=== PATIENT | male | born 1960 | race Caucasian/White ===

== ENCOUNTER 2018-11-28 01:06 | Emergency (ER) | payer MEDICARE, SELFPAY ==
[2018-11-28 01:07] VITALS: BP 162/89; PULSE 88; RESP 20; TEMP 36.3; O2SAT 97; BMI 30.7
[2018-11-28 01:11] VITALS: BP 162/89; PULSE 88; RESP 20; TEMP 36.3; O2SAT 97
--- NOTE | 2018-11-28 01:20 | ED.DCSUM_ITS ---
- ER Visit Summary Date of Service: 11/28/18 Chief Complaint: Wound check History of Present Illness: The patient is a 58 M who presents for wound check. He complains of a wound with some burning discomfort on his upper back. This is been present for 1 year. No change in symptoms, he just thought he would come in and have it checked. He otherwise has no complaints. No fevers chest pain shortness of breath vomiting. Physical Examination: Afebrile vitals unremarkable He does have a superficial wound over the upper thoracic region there is an area that is about 2 x 1 cm and a second area below this that is about 1 cm in diameter this is superficial and almost just appears consistent with an area that is been scratched there is no surrounding cellulitic changes no fluctuance mass abscess Test Results: Not indicated Emergency Department Course and Treatment: Patient presents with a superficial chronic wound that does not appear infected and is been present for 1 year. No further emergent diagnostic work-up or intervention is necessary. He was advised to follow-up with a manufacturing engineering professor and was discharged. Treatment Plan: [] Disposition: Discharge Impression: Wound check This note was generated with Sai [employer] dictation software. It may contain incorrect words, spelling, and punctuation that were not noted in review of the chart prior to signing ED Disposition - Plan for ED Patient: Referrals: Armen Carranza MD [Primary Care Provider] -
--- NOTE | 2018-11-28 01:20 | ED.DEP ---
ED Disposition - Plan for ED Patient: Referrals: Armen Carranza MD [Primary Care Provider] - Additional Instructions: You were seen today for a wound on your back. I recommend that you follow-up with dermatology.
[2018-11-28 01:32] VITALS: PULSE 72; RESP 20; O2SAT 98
--- NOTE | 2018-11-28 01:34 | ED.RN ---
THIS NURSE REVIEWED D/C INSTRUCTIONS WITH PT. PT VERBALIZED UNDERSTANDING OF INSTRUCTIONS. PT DENIES FURTHER NEEDS OR QUESTIONS AT THIS TIME. PT AMBULATES FROM ROOM ON OWN WITHOUT ASSISTANCE FROMS [facility]
== END 2018-11-28 01:34 | disposition home or self-care (01) ==
LOC: ED 01:27
PROVIDERS: Emergency Provider Emergency Medicine; Family Provider Family Medicine; PCP Family Medicine
DX: S20.409A Unspecified superficial injuries of unspecified back wall of thorax, initial encounter (principal); X58.XXXA Exposure to other specified factors, initial encounter; Z72.0 Tobacco use
CPT/HCPCS: 99282

== ENCOUNTER 2019-03-24 19:01 | Emergency (ER) | payer MEDICARE, SELFPAY ==
[2019-03-24 19:02] VITALS: BP 154/93; PULSE 85; RESP 16; TEMP 36.7; O2SAT 97; BMI 29.0
[2019-03-24 19:36] LABS: Absolute Lymphocyte Count 2.75 X10^3/uL (0.83-4.51); Absolute Neutrophil Count 7.4 X10^3/uL (2.0-7.7); Basophil# 0.17 X10^3/uL; Basophil% 1.5 % (0-1); Eosinophil# 0.47 X10^3/uL; Hematocrit 46.6 % (40-54); Hemoglobin 15.3 g/dL (13.0-16.5); Lymphocyte # 2.75 X10^3/ul (4.0); Lymphocyte % 23.5 % (19-41); Mean Corp Hgb Conc 32.8 g/dL (32-36); Mean Corpuscular Hgb 29.9 pg (27.0-32.0); Mean Platelet Vol. 9.2 fl (6.2-12.0); Monocyte% 7.7 % (0-10); NRBC Flagged by Analyzer 0 % (0-5); Neutrophil # 7.36 X10^3/uL (2.7-7.7); Neutrophil % 62.8 % (47-70); Platelet Count 331 K/mm3 (150-450); RBC Distribution Width CV 12.4 % (11.6-14.6); RBC Distribution Width SD 41.2 fl (35.1-43.9); Red Blood Count 5.12 M/mm3 (4.6-6.2); White Blood Count 11.7 K/mm3 (4.4-11.0)
[2019-03-24 19:52] LABS: Anion Gap 4 (5-15); BUN 16 mg/dL (7-18); BUN/Creat Ratio 18.4 RATIO (10-20); Calcium,Total 8.5 mg/dL (8.5-10.1); Chloride 110 mmol/L (98-107); Creatinine, Serum 0.87 mg/dL (0.70-1.30); EST Glomerular Filtration Rate 95 mL/min (>60); Est Glom Filt Rate - Afr Amer 115 mL/min (>60); Estimated Creatinine Clearance 85.47 ml/min; Glucose 116 mg/dL (74-106); Potassium 3.9 mmol/L (3.5-5.1); Sodium Level 142 mmol/L (136-145)
[2019-03-24 19:56] LABS: Alcohol, Blood (Medical)-Serum < 3.0 mg/dL
--- NOTE | 2019-03-24 19:57 | ED.DCSUM_ITS ---
- ER Visit Summary Date of Service: 03/24/19 Chief Complaint: Suicidal ideation History of Present Illness: The patient is a 58 M presenting with suicidal ideation. Patient states that he has had thoughts of suicide recently. He tried to shoot himself with a gun 2 months ago. He states the gun malfuncti oned. He does not currently have access to a gun. He has a history of schizophrenia and is not currently taking medication. He states he has been very paranoid and afraid to sleep in his house. He is sleeping in his car. He has had auditory hallucinations. He used methamphetamine 4 days ago. Physical Examination: Vitals are stable. Patient is afebrile. Alert no acute distress. HEENT exam is unremarkable. Neck is supple. Lungs are clear and equal bilaterally. Heart is regular rate and rhythm. Abdomen is soft nontender nondistended. Extremities are unremarkable. Skin is warm and dry. No focal neurologic deficit. Depressed affect, suicidal ideation Remainder of exam is unremarkable. Emergency Department Course and Treatment: CBC shows white count 11.7. Chemistries unremarkable. Alcohol negative. Tox positive for amphetamine. Discussed with social work for evaluation. Disposition: Transfer Impression: Suicidal ideation, history of schizophrenia This note was generated with Ph.Creative dictation software. It may contain incorrect words, spelling, and punctuation that were not noted in review of the chart prior to signing ED Disposition - Plan for ED Patient: Referrals: Armen Carranza MD [Primary Care Provider] -
[2019-03-24 19:58] VITALS: RESP 19
[2019-03-24 20:00] LABS: Amphetamine Urine VISTA POSITIVE (<1000 ng/mL); Barbiturate Urine VISTA NEGATIVE (< 200 ng/mL); Benzodiazepine Urine VISTA NEGATIVE (< 200 ng/mL); Cocaine Urine VISTA NEGATIVE (< 300 ng/mL); Ecstacy Urine VISTA NEGATIVE (< 500 ng/mL); Methadone Urine VISTA NEGATIVE (< 300 ng/mL); PCP Urine VISTA NEGATIVE (< 25 ng/mL); THC Urine VISTA NEGATIVE (< 50 ng/mL); Vista UDS pH Range 5
[2019-03-24 20:01] VITALS: RESP 16
--- NOTE | 2019-03-24 20:10 | CM.ED ---
Social Work Consult: Suicidal Thoughts Informant: Nursing staff, Dr. Myles. Chief Complaint: Patient stating to be scared that someone is going to kill me. Patient stating to be threatened and to have been sleeping in patient car for the past 3 weeks due to someone sending patient pictures of patient house and they are trying to kill me. Patient stating I am tried of it and don't want to deal with life anymore. Marital/Social History: Single. Patient stating to be unable to read or write. Patient stating to be able to read some but it takes me awhile. Living Situation: Lives alone in a private home. Support/Resources: Patient identifying none. Patient stating a history of treatment by psychiatrist and counseling but nothing currently. Education and Employment History: Disability due to mental health and limited literacy per patient. Employed part-time at [employer]. Mental Health Treatment/History: Patient stating to be diagnosed with Schizophrenia. Patient denies taking any medication for Schizophrenia. Patient stating to have been in an inpatient psychiatric facility 3 weeks ago and to have had one other stay besides that. Abuse Issues: Patient denies. Substance Abuse Hx: Patient stating to use meth occasionally and last use was 3-4 days ago. Patient denies any alcohol abuse but stating to have had a recent DUI. Patient states to smoke 1 1/2 ppd of cigarettes. Patient denies any other substance abuse. Patient stating that cigarettes help patient manage stress. Mental Status Exam: A&Ox3 Appearance/General Behavior: disheveled some flight of idea. Was able to be directed. Mood/Affect: Elevated mood and anxious affect. Some paranoid behavior. Patient stating to feel safe now. Communication Pattern: Responds to questions. Thought Process: Paranoid thoughts, stating to hear some voices. Voices and neutral in nature and are not telling patient to kill self. Risk to self/others: Patient stating to have active suicidal thoughts. Patient stating to have attempted suicide in the past by shooting self. Patient denies currently having a gun and to have given patient gun to friends as patient was thinking about shooting self again. Patient stating that last time patient attempted to complete suicide the gun did not go off. Assessment: This clinical social work therapist met with patient in room. This clinical social work therapist introduced self as well as clinical social work therapist role, patient voicing understanding and agreeable to meet with this clinical social work therapist. Patient stating to not feel safe in community from others and to not feel safe from self. Patient stating to not be sure who patient is currently threatened by. This clinical social work therapist inquired if patient has spoken to the police. Patient stating that the police informed patient that patient would need proof. Patient denies having any phone calls or knowing who is after me. Patient stating I feel threatened and I know they are real. Patient stating to be very paranoid. Collaborating with Dr. Myles. This clinical social work therapist recommending inpatient psychiatric placement for stabilization, Dr. Myles agreeable pending medical clearance. Will continue to follow. PLAN: Discharge to Inpatient psychiatric facility if medically cleared. Tim CHOWDARY, MEHDI
--- NOTE | 2019-03-24 20:39 | CM.ED ---
Social Work Telephone call to [facility], Intake. Referral made. Confirmed to be in-network with patient insurance. Clinical information sent. Pending approval. Tim CHOWDARY, MEHDI
[2019-03-24 21:00] VITALS: RESP 16
--- NOTE | 2019-03-24 21:43 | NURSING ---
CALLED [facility] AND WAS TOLD NO AVAILABILITY TILL MORING CALLED [facility] AND SET UP 7:30A P/U
--- NOTE | 2019-03-24 21:53 | CM.ED ---
Social Work Telephone call from [facility], patient accepted. Accepting Dr. Corrales. Nurse to nurse report: [phone]. Notified patient and medical staff. ED secretary administrative assistant to set up transportation. [facility] faxed. Tim CHOWDARY, MEHDI
[2019-03-24 22:17] VITALS: RESP 16
--- NOTE | 2019-03-24 22:30 | ED.RN ---
PT AWARE TRANSPORTATION IS NOT AVAILABLE TO [facility] UNTIL 729 TOMORROW. PT VERBALIZES AN UNDERSTANDING.
[2019-03-24] MEDS: cycloBENZAPRine HCl 10 MG Tablet PO (22:35)
[2019-03-24] MEDS: Ibuprofen 200 MG Tablet 800 MG PO (22:36)
[2019-03-24 23:00] VITALS: BP 148/96; PULSE 73; RESP 16; O2SAT 96
[2019-03-25] VITALS (8 sets, daily range): BP systolic 152; BP diastolic 108; PULSE 61; RESP 15–18; TEMP 36.4; O2SAT 99
[2019-03-25] MEDS: Lisinopril 20 MG Tablet PO (07:22)
== END 2019-03-25 08:16 ==
LOC: ED 20:15
PROVIDERS: Emergency Provider Emergency Medicine; Family Provider Family Medicine; PCP Family Medicine
DX: R45.851 Suicidal ideations (principal); F20.9 Schizophrenia, unspecified; I10 Essential (primary) hypertension
CPT/HCPCS: 36415; 80048; 80307; 80320; 85025; 99284; J7030; G0480

== ENCOUNTER 2019-05-17 22:31 | Emergency (ER) | payer MEDICARE, SELFPAY ==
[2019-05-17 22:31] VITALS: BP 138/93; PULSE 81; RESP 16; TEMP 36.6; O2SAT 97; BMI 28.6
--- NOTE | 2019-05-17 22:46 | ED.VIS.GEN ---
History of Present Illness Chief Complaint: Suicidal Detail of Chief Complaint: Suicidal ideation Informant: Patient Onset: Days - For a few days Context: Gradual Onset Narrative: Patient presents with suicidal ideation is been ongoing for the past several days. He states he has been going through some things but does not want to elaborate. He does not have a specific plan on how he would want to hurt himself. He did attempt to shoot himself a couple years ago in a suicide attempt. Patient was seen here in early March and transferred to [facility]. He states he did feel improved while he was there. He was started on risperidone. Patient states that he has not been sleeping well. He has been eating and drinking. He is been taking his medications as prescribed. Past Medical History - Allergies and Home Meds Allergies/Adverse Reactions: Allergies No Known Allergies Allergy (Verified 05/17/19 22:35) Primary Care Physician: Armen Carranza MD [Primary Care Provider] - Prior records reviewed: Yes Past Medical History: - - Reviewed Lives: Alone Smoking Status: Current every day smoker Alcohol: None Drugs: - - Reports occasional drug use, last used a couple weeks ago. Review of Systems General: Denies: Chills, Fever Eyes: Denies: Visual changes - bilaterally ENT: Denies: Bilateral ear pain Cardiovascular: Denies: Chest pain Respiratory: Denies: Dyspnea, Cough Gastrointestinal: Denies: Abdominal pain, Nausea, Vomiting, Diarrhea Genitourinary: Denies: Dysuria Musculoskeletal: Denies: Neck pain, Back pain Skin: Denies: Rash Neurological: Denies: Headache Psych: Reports: Depression, Suicidal thoughts Hematologic: Denies: Easy bruising Allergy: Denies: Uticaria Physical Exam Vital Signs/Narrative: Vital Signs Temp Pulse Resp BP Pulse Ox 05/17/19 22:31 97.9 F 81 16 138/93 H 97 Inital Vital Signs reviewed: Yes General: Well nourished, Well developed Head: Normocephalic ENT: Moist mucous membranes Cardiovascular: Regular rate, Regular rhythm Respiratory: No distress, CTA bilaterally Abdomen: Soft, Nontender, Normal bowel sounds Extremities: Nontender Skin: Normal color, No rash Neurological: Alert, Oriented x3 Psychological: - - Flat affect. Admits to suicidal ideation but no specific plan. Diagnostic/Tx/Re-eval Laboratory Results 05/17/19 05/17/19 05/17/19 22:55 22:55 22:55 WBC 10.2 RBC 4.84 Hgb 14.2 Hct 44.2 MCV 91.3 MCH 29.3 MCHC 32.1 RDW Std Deviation 43.4 RDW Coeff of Luis Miguel 12.9 Plt Count 315 MPV 9.3 Immature Gran % (Auto) 0.400 Neut % (Auto) 51.8 Lymph % (Auto) 27.3 Kingman % (Auto) 8.8 Eos % (Auto) 9.7 H Baso % (Auto) 2.0 H Absolute Neuts (auto) 5.3 Absolute Lymphs (auto) 2.78 Nucleated RBC % 0 Sodium 142 Potassium 3.9 Chloride 110 H Carbon Dioxide 27.0 Anion Gap 5 BUN 14 Creatinine 0.90 Estim Creat Clear Calc 79.75 Est GFR (MDRD) Af Amer 111 Est GFR (MDRD) Non-Af 92 BUN/Creatinine Ratio 15.6 Glucose 93 Calcium 8.6 Urine Opiates Screen Urine Methadone Screen Ur Barbiturates Screen Ur Phencyclidine Scrn Ur Amphetamines Screen U Methamphetamin-MDMA U Benzodiazepines Scrn Urine Cocaine Screen U Cannabinoids Screen Ur Drug Screen Comment Ethyl Alcohol < 3.0 05/17/19 23:30 WBC RBC Hgb Hct MCV MCH MCHC RDW Std Deviation RDW Coeff of Luis Miguel Plt Count MPV Immature Gran % (Auto) Neut % (Auto) Lymph % (Auto) Kingman % (Auto) Eos % (Auto) Baso % (Auto) Absolute Neuts (auto) Absolute Lymphs (auto) Nucleated RBC % Sodium Potassium Chloride Carbon Dioxide Anion Gap BUN Creatinine Estim Creat Clear Calc Est GFR (MDRD) Af Amer Est GFR (MDRD) Non-Af BUN/Creatinine Ratio Glucose Calcium Urine Opiates Screen NEGATIVE Urine Methadone Screen NEGATIVE Ur Barbiturates Screen NEGATIVE Ur Phencyclidine Scrn NEGATIVE Ur Amphetamines Screen POSITIVE H U Methamphetamin-MDMA NEGATIVE U Benzodiazepines Scrn NEGATIVE Urine Cocaine Screen NEGATIVE U Cannabinoids Screen NEGATIVE Ur Drug Screen Comment Ethyl Alcohol - Medical Decision Making Patient was seen by Angelica from the counseling center. Patient did admit to her that he has been having paranoid thoughts again about someone breaking into his house. He reported has been sleeping in his car for the past 5 nights. He told her that he does not have a specific plan to hurt himself, but states it would probably be pills. Patient's information has been faxed and he has been accepted at [facility] in [place]. Ambulance transport will be available in the morning. ED Disposition - Plan for ED Patient: Disposition: Psychiatric Hospital or Unit Diagnosis: Suicidal ideation, Paranoia Referrals: Armen Carranza MD [Primary Care Provider] -
[2019-05-17 23:00] LABS: Absolute Lymphocyte Count 2.78 X10^3/uL (0.83-4.51); Absolute Neutrophil Count 5.3 X10^3/uL (2.0-7.7); Eosinophil# 0.99 X10^3/uL; Eosinophils% 9.7 % (0-5); Hematocrit 44.2 % (40-54); Hemoglobin 14.2 g/dL (13.0-16.5); Lymphocyte # 2.78 X10^3/ul (4.0); Lymphocyte % 27.3 % (19-41); Mean Corp Hgb Conc 32.1 g/dL (32-36); Mean Corpuscular Hgb 29.3 pg (27.0-32.0); Mean Corpuscular Volume 91.3 fL (80-94); Mean Platelet Vol. 9.3 fl (6.2-12.0); Monocyte% 8.8 % (0-10); NRBC Flagged by Analyzer 0 % (0-5); Neutrophil # 5.26 X10^3/uL (2.7-7.7); Neutrophil % 51.8 % (47-70); Platelet Count 315 K/mm3 (150-450); RBC Distribution Width CV 12.9 % (11.6-14.6); RBC Distribution Width SD 43.4 fl (35.1-43.9); Red Blood Count 4.84 M/mm3 (4.6-6.2); White Blood Count 10.2 K/mm3 (4.4-11.0)
[2019-05-17 23:13] LABS: Anion Gap 5 (5-15); BUN 14 mg/dL (7-18); BUN/Creat Ratio 15.6 RATIO (10-20); Calcium,Total 8.6 mg/dL (8.5-10.1); Chloride 110 mmol/L (98-107); EST Glomerular Filtration Rate 92 mL/min (>60); Est Glom Filt Rate - Afr Amer 111 mL/min (>60); Estimated Creatinine Clearance 79.75 ml/min; Glucose 93 mg/dL (74-106); Potassium 3.9 mmol/L (3.5-5.1); Sodium Level 142 mmol/L (136-145)
[2019-05-17 23:24] LABS: Alcohol, Blood (Medical)-Serum < 3.0 mg/dL
[2019-05-17 23:56] LABS: Amphetamine Urine VISTA POSITIVE (<1000 ng/mL); Barbiturate Urine VISTA NEGATIVE (< 200 ng/mL); Benzodiazepine Urine VISTA NEGATIVE (< 200 ng/mL); Cocaine Urine VISTA NEGATIVE (< 300 ng/mL); Ecstacy Urine VISTA NEGATIVE (< 500 ng/mL); Methadone Urine VISTA NEGATIVE (< 300 ng/mL); PCP Urine VISTA NEGATIVE (< 25 ng/mL); THC Urine VISTA NEGATIVE (< 50 ng/mL); Vista UDS pH Range 6
[2019-05-18] VITALS (7 sets, daily range): BP systolic 125; BP diastolic 84; PULSE 65; RESP 15–17; TEMP 36.4; O2SAT 95–98
== END 2019-05-18 07:47 ==
PROVIDERS: Emergency Provider Emergency Medicine; Family Provider Family Medicine; PCP Family Medicine
DX: R45.851 Suicidal ideations (principal); F22 Delusional disorders; F17.200 Nicotine dependence, unspecified, uncomplicated; Z91.5 Personal history of self-harm
CPT/HCPCS: 36415; 80048; 80307; 80320; 85025; 99284; G0480

== ENCOUNTER 2019-07-17 18:30 | Emergency (ER) | payer MEDICARE, SELFPAY ==
[2019-07-17 18:30] VITALS: BP 160/99; PULSE 98; RESP 16; TEMP 36.3; O2SAT 97; BMI 28.2
[2019-07-17 19:03] VITALS: RESP 14
--- NOTE | 2019-07-17 19:22 | ED.VISSUMM ---
- ER Visit Summary Date of Service: 07/17/19 Chief Complaint: Suicidal ideation History of Present Illness: The patient is a 58 M with a history of schizophrenia and recent admission to [facility]. He was released from the hospital earlier this week. He is not doing well. He is having suicidal thoughts. No plan or attempt. He is worried that someone will attempt to kill him if he goes to sleep. Physical Examination: Afebrile and vital signs unremarkable. Alert and oriented. Depressed mood and flat affect. Heart regular. Lungs clear. Abdomen soft. Skin normal. Test Results: CBC, CMP, tox screen, alcohol pending. Emergency Department Course and Treatment: Patient has a history of schizophrenia with paranoia and suicidal ideation. No plan or attempt. He had suicide precautions. Medical clearance will be performed. Patient will be evaluated by health care social worker and crisis counselor for placement. Amphetamines positive. Otherwise work-up is unremarkable. Patient is medically cleared for psychiatric transfer and admission Treatment Plan: As above Disposition: Pending evaluation Impression: 1. Suicidal ideation This note was generated with [employer] dictation software. It may contain incorrect words, spelling, and punctuation that were not noted in review of the chart prior to signing ED Disposition - Plan for ED Patient: Referrals: Armen Carranza MD [Primary Care Provider] -
[2019-07-17 19:30] LABS: Absolute Lymphocyte Count 2.87 X10^3/uL (0.83-4.51); Absolute Neutrophil Count 6.8 X10^3/uL (2.0-7.7); Basophil# 0.17 X10^3/uL; Basophil% 1.5 % (0-1); Eosinophil# 0.35 X10^3/uL; Eosinophils% 3.1 % (0-5); Hematocrit 45.6 % (40-54); Hemoglobin 15.3 g/dL (13.0-16.5); Lymphocyte # 2.87 X10^3/ul (4.0); Lymphocyte % 25.3 % (19-41); Mean Corp Hgb Conc 33.6 g/dL (32-36); Mean Corpuscular Hgb 29.7 pg (27.0-32.0); Mean Corpuscular Volume 88.4 fL (80-94); Mean Platelet Vol. 9.2 fl (6.2-12.0); Monocyte# 1.11 X10^3/uL; Monocyte% 9.8 % (0-10); NRBC Flagged by Analyzer 0 % (0-5); Neutrophil # 6.81 X10^3/uL (2.7-7.7); Neutrophil % 59.9 % (47-70); Platelet Count 325 K/mm3 (150-450); RBC Distribution Width CV 12.9 % (11.6-14.6); RBC Distribution Width SD 41.9 fl (35.1-43.9); Red Blood Count 5.16 M/mm3 (4.6-6.2); White Blood Count 11.4 K/mm3 (4.4-11.0)
--- NOTE | 2019-07-17 19:55 | CM.ED ---
SOCIAL WORK INFORMANT: DR. LOBATO REASON FOR REFERRAL: SUICIDAL IDEATION/PARANOID CHIEF COMPLIANT: PATIENT REPORTS JUST D/C'ED FROM [facility]. PATIENT REPORTS SUICIDAL THOUGHTS, PARANOID DELUSIONS, AUDITORY AND VISUAL HALLUCINATIONS. PATIENT STATES HAS BEEN SLEEPING IN HIS CAR BECAUSE I THOUGHT PEOPLE WOULD ATTACK ME. MARITAL/SOCIAL HISTORY: SINGLE LIVING SITUATION: PATIENT REPORTS LIVES IN [place], [place] IN AN APARTMENT ALONE. 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 MENTAL HEALTH TREATMENT/HISTORY: PATIENT REPORTS HAS BEEN DIAGNOSED WITH SCHIZOPHRENIA. PATIENT STATES IS NOT CURRENTLY ON MEDICATION. PATIENT STATES HAS BEEN IN/OUT OF PSYCH HOSPITALS. SUBSTANCE ABUSE HISTORY: PATIENT REPORTS PRIOR HISTORY OF METH USE. PATIENT DENIES ANY CURRENT USE, UNLESS SOMEONE PUT IT IN MY DRINK. MENTAL STATUS EXAM ORIENTATION: A&OX3 MEMORY: FAIR APPEARANCE/GENERAL BEHAVIOR: CLEAN/APPROPRIATE, CALM MOOD/AFFECT: ANXIOUS COMMUNICATION PATTERN: RESPONDS TO QUESTIONS, RAPID SPEECH THOUGHT PROCESS: PARANOID, HALLUCINATION A/V, DELUSIONS JUDGEMENT: FAIR RISK TO SELF/OTHERS: SUICIDAL: PATIENT ADMITS TO SUICIDAL THOUGHTS. DENIES PLAN OR INTENT. HOMICIDAL: PATIENT DENIES HOMICIDAL THOUGHTS. IF SOMEONE HURTS ME, THEN I WILL HURT THEM. I DON'T WANT TO HURT ANYBODY. ASSESSMENT: MET WITH PATIENT IN ROOM. INTRODUCED ROLE AND REASON FOR REFERRAL. PATIENT STATES WAS JUST DISCHARGED FROM [facility]. PATIENT STATES THEY DROPPED THE BALL. PATIENT REPORTS DID NOT FEEL READY FOR DISCHARGE AND FACILITY DID NOT SET UP SERVICES FOR PATIENT. PATIENT REPORTS SUICIDAL IDEATION. PATIENT DENIES ANY PLAN OR INTENT. PATIENT STATES MY HEAD JUST ISN'T RIGHT. PATIENT REPORTS WORRIED ABOUT BEING ALONE. PATIENT STATES HAS BEEN SLEEPING IN HIS TRUCK, I THOUGHT PEOPLE WOULD ATTACK ME. PATIENT PRESENTS WITH PARANOID DELUSIONS. PATIENT STATES HAVING AUDITORY AND VISUAL HALLUCINATIONS. PATIENT STATES WANTING HELP AND WAS HOPING TO GET INTO 90 DAY TREATMENT PROGRAM AFTER HOSPITALIZATION. COLLABORATION WITH DR. LOBATO. RECOMMENDING INPATIENT PSYCH HOSPITALIZATION FOR STABILIZATION. PLAN: REFERRAL FOR INPATIENT PSYCH EPI ALBA, CERTIFIED NURSING ATTENDANT.
[2019-07-17 20:01] LABS: ALB/GLOB Ratio 1.1 RATIO (0.9-2.4); AST(SGOT) 16 U/L (15-37); Alanine Aminotransfer ALT/SGPT 22 U/L (16-61); Alkaline Phosphatase 92 U/L (45-117); Anion Gap 8 (5-15); BUN 22 mg/dL (7-18); BUN/Creat Ratio 22.5 RATIO (10-20); Calcium,Total 9.2 mg/dL (8.5-10.1); Chloride 107 mmol/L (98-107); Creatinine, Serum 0.98 mg/dL (0.70-1.30); EST Glomerular Filtration Rate 83 mL/min (>60); Est Glom Filt Rate - Afr Amer 101 mL/min (>60); Estimated Creatinine Clearance 73.24 ml/min; Globulin 3.6 g/dL (2.2-4.2); Glucose 131 mg/dL (74-106); Potassium 3.7 mmol/L (3.5-5.1); Protein, Total 7.6 g/dL (6.4-8.2); Sodium Level 142 mmol/L (136-145)
[2019-07-17 20:02] LABS: Alcohol, Blood (Medical)-Serum < 3.0 mg/dL
--- NOTE | 2019-07-17 20:20 | CM.ED ---
SOCIAL WORK REFERRAL FAXED AND CALLED TO [facility]. WILL FAX TOX SCREEN ONCE OBTAINED. Luann WEIR, SENIOR HR GENERALIST, SUPERVISOR ADVICE.
[2019-07-17 21:08] LABS: Amphetamine Urine VISTA POSITIVE (<1000 ng/mL); Barbiturate Urine VISTA NEGATIVE (< 200 ng/mL); Benzodiazepine Urine VISTA NEGATIVE (< 200 ng/mL); Cocaine Urine VISTA NEGATIVE (< 300 ng/mL); Ecstacy Urine VISTA NEGATIVE (< 500 ng/mL); Methadone Urine VISTA NEGATIVE (< 300 ng/mL); PCP Urine VISTA NEGATIVE (< 25 ng/mL); THC Urine VISTA NEGATIVE (< 50 ng/mL); Vista UDS pH Range 5
--- NOTE | 2019-07-17 21:15 | CM.ED ---
SOCIAL WORK TOX SCREEN FAXED TO [facility]
--- NOTE | 2019-07-17 21:49 | CM.ED ---
SOCIAL WORK RECEIVED CALL FROM INTAKE WITH [facility]. PER WORKER, SPOKE WITH DOCTOR AND THEY FEEL PATIENT REQUIRES MORE INTENSE TREATMENT. PATIENT DENIED. REFERRAL FAXED AND CALLED TO [facility]. INTAKE TO REVIEW REFERRAL. Luann WEIR MSW, OFFICE SERVICES ASSOCIATE.
--- NOTE | 2019-07-17 22:26 | CM.ED ---
SOCIAL WORK PATIENT ACCEPTED AT [facility] BY ORTIZ MCALLISTER TO THE DDX UNIT. NURSE TO CALL REPORT TO [facility]. [facility] FAXED AT THIS TIME. Luann WEIR, VP COMPLIANCE, PLATE HANGER.
[2019-07-17 23:00] VITALS: BP 160/99; PULSE 98; RESP 16; TEMP 36.3; O2SAT 97
[2019-07-17] MEDS: cycloBENZAPRine HCl 10 MG Tablet PO (23:33)
[2019-07-17] MEDS: Ibuprofen 400 MG Tablet 800 MG PO (23:33)
--- NOTE | 2019-07-17 23:36 | ED.RN ---
julius pinedo agrees to transport to [facility]. ETA 1.5-2 hr from this time.
== END 2019-07-18 01:21 ==
LOC: ED 20:00
PROVIDERS: Emergency Provider Emergency Medicine; Family Provider Family Medicine; PCP Family Medicine
DX: R45.851 Suicidal ideations (principal); F20.0 Paranoid schizophrenia; Z72.0 Tobacco use
CPT/HCPCS: 80053; 80307; 80320; 85025; 99284; G0480

== ENCOUNTER 2020-02-02 17:32 | Emergency (ER) | payer MEDICARE, SELFPAY ==
[2020-02-02 17:33] VITALS: BP 197/52; PULSE 101; RESP 24; TEMP 36.7; BMI 30.5
--- NOTE | 2020-02-02 17:54 | ED.VIS.GEN ---
History of Present Illness Chief Complaint: Suicidal Informant: Patient Onset: Days Context: Gradual Onset Narrative: Patient present secondary to suicidal ideation. He states he just been feeling down lately. He has a history of schizophrenia. He was last treated at [facility] in [place] and states they gave him a shot there that really seem to help him. He was hoping to go back to be seen and evaluated by them again. He denies having a specific plan to me. He is no longer following up with the counseling center locally. He is not taking any psychiatric medications at home. - Past Medical History (1) Schizophrenia Status: Chronic (2) Coronary artery disease Status: Chronic (3) Hypertension Status: Chronic (4) High cholesterol Status: Chronic (5) Back pain Status: Chronic Past Medical History - Allergies and Home Meds Allergies/Adverse Reactions: Allergies No Known Allergies Allergy (Verified 02/02/20 19:04) Primary Care Physician: Armen Carranza MD [Primary Care Provider] - Prior records reviewed: Yes Lives: Alone Smoking Status: Current every day smoker Review of Systems General: Denies: Chills, Fever Eyes: Denies: Visual changes - bilaterally ENT: Denies: Bilateral ear pain Cardiovascular: Denies: Chest pain Respiratory: Denies: Dyspnea, Cough Gastrointestinal: Denies: Abdominal pain, Nausea, Vomiting, Diarrhea Genitourinary: Denies: Dysuria Musculoskeletal: Denies: Extremity Pain Neurological: Denies: Headache Psych: Reports: Depression, Suicidal thoughts Hematologic: Denies: Easy bruising, Easy bleeding Allergy: Denies: Uticaria Physical Exam Vital Signs/Narrative: Vital Signs Temp Pulse Resp BP 02/02/20 17:33 98.0 F 101 H 24 H 197/52 H Inital Vital Signs reviewed: Yes General: Well nourished, Well developed Head: Normocephalic ENT: Moist mucous membranes Neck: Supple Cardiovascular: Regular rate, Regular rhythm Respiratory: No distress, CTA bilaterally Abdomen: Soft, Nontender Extremities: Nontender Skin: Normal color Neurological: Alert, Oriented x3 Psychological: Depressed Diagnostic/Tx/Re-eval Laboratory Results 02/02/20 02/02/20 02/02/20 18:30 18:35 18:35 WBC 10.1 RBC 5.04 Hgb 15.4 Hct 45.8 MCV 90.9 MCH 30.6 MCHC 33.6 RDW Std Deviation 41.8 RDW Coeff of Luis Miguel 12.7 Plt Count 334 MPV 9.2 Immature Gran % (Auto) 0.400 Neut % (Auto) 59.4 Lymph % (Auto) 24.6 [place]. [place] % (Auto) 8.8 Eos % (Auto) 4.9 Baso % (Auto) 1.9 H Absolute Neuts (auto) 6.0 Absolute Lymphs (auto) 2.47 Nucleated RBC % 0 Sodium 140 Potassium 3.7 Chloride 105 Carbon Dioxide 28.0 Anion Gap 7 BUN 12 Creatinine 0.86 Estim Creat Clear Calc 85.40 Est GFR (MDRD) Af Amer 116 Est GFR (MDRD) Non-Af 96 BUN/Creatinine Ratio 13.9 Glucose 107 H Calcium 8.4 L Urine Opiates Screen NEGATIVE Urine Methadone Screen NEGATIVE Ur Barbiturates Screen NEGATIVE Ur Phencyclidine Scrn NEGATIVE Ur Amphetamines Screen NEGATIVE U Methamphetamin-MDMA NEGATIVE U Benzodiazepines Scrn NEGATIVE Urine Cocaine Screen NEGATIVE U Cannabinoids Screen NEGATIVE Ur Drug Screen Comment Ethyl Alcohol 02/02/20 18:35 WBC RBC Hgb Hct MCV MCH MCHC RDW Std Deviation RDW Coeff of Luis Miguel Plt Count MPV Immature Gran % (Auto) Neut % (Auto) Lymph % (Auto) [place]. [place] % (Auto) Eos % (Auto) Baso % (Auto) Absolute Neuts (auto) Absolute Lymphs (auto) Nucleated RBC % Sodium Potassium Chloride Carbon Dioxide Anion Gap BUN Creatinine Estim Creat Clear Calc Est GFR (MDRD) Af Amer Est GFR (MDRD) Non-Af BUN/Creatinine Ratio Glucose Calcium Urine Opiates Screen Urine Methadone Screen Ur Barbiturates Screen Ur Phencyclidine Scrn Ur Amphetamines Screen U Methamphetamin-MDMA U Benzodiazepines Scrn Urine Cocaine Screen U Cannabinoids Screen Ur Drug Screen Comment Ethyl Alcohol < 3.0 - Medical Decision Making Patient was seen by Chelsie from social work. Patient is voluntarily going to [facility] in [place]. We will arrange transport for him. ED Disposition - Plan for ED Patient: Disposition: Psychiatric Hospital or Unit Diagnosis: Suicidal ideation Referrals: Armen Carranza MD [Primary Care Provider] -
--- NOTE | 2020-02-02 18:24 | CM.ED ---
SOCIAL WORK Informant: Dr. Toth Reason for Consult: Suicidal Ideation Chief Compliant: Patient presents to ER with suicidal ideation, patient denies specific plan. Patient admits to depression, hallucinations- auditory and visual, and paranoia. Patient reports history of schizophrenia. Marital/Social History: Single Living Situation: Patient reports lives in an apartment in [place]. 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 Mental Health Treatment/History: Patient reports history of schizophrenia, depression. Patient states I was on a shot and it worked really well. Patient denies any current treatment. Patient states uses NyQuil to help with sleep. Triggers/Stressors: Every thing in my life. Coping Skills: Patient states I try to work a lot, or use my NyQuil. Abuse Issues: Patient denies any emotional, physical or sexual abuse. Substance Abuse History: Patient admits to history of meth use to stay awake. Patient states last used meth 3 weeks ago. Patient stating, I was afraid to go to sleep. Risk to Self/Others: Suicidal: Patient admits to suicidal thoughts. Patient denies any specific plans. Patient states, Wish I would just lay down and not wake up. I've had thoughts of shooting myself in the past. Patient counseled on lethal means. Homicidal: Patient denies any homicidal ideation. Mental Status Exam: Orientation: A&Ox3 Memory: Fair Appearance/General Behavior: Clean/appropriate Mood/Affect: Depressed, anxious Communication Pattern: Responds to questions Thought Process: Hallucinations-auditory and visual, paranoid Judgment: Fair Assessment: Met with patient in room. Patient with sitter protocol in place. Introduced role and reason for referral. Patient admits to suicidal ideation and states has not been doing well. Patient states is currently not taking any medications for mental health. Patient states uses NyQuil to sleep. Patient admits to meth use 3 weeks ago due to being afraid to fall asleep. Patient states has thoughts that people are out to get him. Patient states did well with shot form of medication and hopes to get back on that. Patient admits to suicidal ideation and denies any specific plan. Patient states does not feel safe with going home and wants help. Collaboration with Dr. Toth. Plan for inpatient psych hospitalization. Patient is voluntary. This worker to facilitate placement. Plan: Referral for inpatient psych D. EPI St, STAFF OCCUPATIONAL THERAPIST
[2020-02-02 18:44] VITALS: RESP 18
[2020-02-02 18:52] LABS: Absolute Lymphocyte Count 2.47 X10^3/uL (0.83-4.51); Basophil# 0.19 X10^3/uL; Basophil% 1.9 % (0-1); Eosinophil# 0.49 X10^3/uL; Eosinophils% 4.9 % (0-5); Hematocrit 45.8 % (40-54); Hemoglobin 15.4 g/dL (13.0-16.5); Lymphocyte # 2.47 X10^3/ul (4.0); Lymphocyte % 24.6 % (19-41); Mean Corp Hgb Conc 33.6 g/dL (32-36); Mean Corpuscular Hgb 30.6 pg (27.0-32.0); Mean Corpuscular Volume 90.9 fL (80-94); Mean Platelet Vol. 9.2 fl (6.2-12.0); Monocyte# 0.88 X10^3/uL; Monocyte% 8.8 % (0-10); NRBC Flagged by Analyzer 0 % (0-5); Neutrophil # 5.98 X10^3/uL (2.7-7.7); Neutrophil % 59.4 % (47-70); Platelet Count 334 K/mm3 (150-450); RBC Distribution Width CV 12.7 % (11.6-14.6); RBC Distribution Width SD 41.8 fl (35.1-43.9); Red Blood Count 5.04 M/mm3 (4.6-6.2); White Blood Count 10.1 K/mm3 (4.4-11.0)
[2020-02-02 19:05] LABS: Amphetamine Urine VISTA NEGATIVE (<1000 ng/mL); Barbiturate Urine VISTA NEGATIVE (< 200 ng/mL); Benzodiazepine Urine VISTA NEGATIVE (< 200 ng/mL); Cocaine Urine VISTA NEGATIVE (< 300 ng/mL); Ecstacy Urine VISTA NEGATIVE (< 500 ng/mL); Methadone Urine VISTA NEGATIVE (< 300 ng/mL); PCP Urine VISTA NEGATIVE (< 25 ng/mL); THC Urine VISTA NEGATIVE (< 50 ng/mL); Vista UDS pH Range 6
[2020-02-02 19:10] LABS: Alcohol, Blood (Medical)-Serum < 3.0 mg/dL
[2020-02-02 19:26] LABS: Anion Gap 7 (5-15); BUN 12 mg/dL (7-18); BUN/Creat Ratio 13.9 RATIO (10-20); Calcium,Total 8.4 mg/dL (8.5-10.1); Chloride 105 mmol/L (98-107); Creatinine, Serum 0.86 mg/dL (0.70-1.30); EST Glomerular Filtration Rate 96 mL/min (>60); Est Glom Filt Rate - Afr Amer 116 mL/min (>60); Glucose 107 mg/dL (74-106); Potassium 3.7 mmol/L (3.5-5.1); Sodium Level 140 mmol/L (136-145)
--- NOTE | 2020-02-02 19:26 | CM.ED ---
SOCIAL WORK Referral faxed and called to [facility]. Awaiting bed confirmation at this time. Luann St, TAXATION INSPECTOR, DRAMATIC DIRECTOR
--- NOTE | 2020-02-02 19:43 | CM.ED ---
SOCIAL WORK Received call from Brittany with [facility]. Per Brittany, patient has been accepted. Brittany reports patient will need to sign consents for voluntary placement. Brittany to fax consents to this worker. Once completed and faxed back to [facility], Brittany will call with accepting information. Staff updated. Luann St, ELECTRICIAN HELPER, FIELD IRRIGATION WORKER
--- NOTE | 2020-02-02 20:22 | CM.ED ---
SOCIAL WORK Consents for Voluntary placement to [facility] received and completed by patient. Consents faxed to [facility] at this time. Awaiting call back with accepting information.
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
[2020-02-02 20:45] VITALS: BP 165/99; PULSE 87; RESP 18; TEMP 36.9; O2SAT 97
[2020-02-02 20:50] VITALS: BP 165/99; PULSE 87; RESP 18; TEMP 36.9; O2SAT 97
== END 2020-02-02 23:27 ==
PROVIDERS: Emergency Provider Emergency Medicine; PCP Family Medicine
DX: R45.851 Suicidal ideations (principal); I25.10 Atherosclerotic heart disease of native coronary artery without angina pectoris; I10 Essential (primary) hypertension; E78.00 Pure hypercholesterolemia, unspecified; F20.9 Schizophrenia, unspecified; F17.200 Nicotine dependence, unspecified, uncomplicated
CPT/HCPCS: 80048; 80307; 80320; 85025; 99284; G0480

== ENCOUNTER 2020-05-09 19:40 | Emergency (ER) | payer MEDICARE, SELFPAY ==
[2020-05-09 19:40] VITALS: BP 147/78; PULSE 94; RESP 17; TEMP 36.3; O2SAT 97; BMI 30.4
--- NOTE | 2020-05-09 20:19 | EKG12_ITS ---
Test Reason : [facility] Blood Pressure : / mmHG Vent. Rate : 087 BPM Atrial Rate : 087 BPM P-R Int : 162 ms QRS Dur : 100 ms QT Int : 356 ms P-R-T Axes : 068 -83 076 degrees QTc Int : 428 ms Normal sinus rhythm Left axis deviation Abnormal ECG Confirmed by JOHNNY RUST, TOSHIA ([id number]), communications editor MICAH HUFFMAN ([id number]) on 05/15/2020 11:53:21 AM Referred By: Confirmed By:TOSHIA TURNER MD
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
[2020-05-09 20:44] LABS: Absolute Lymphocyte Count 2.92 X10^3/uL (0.83-4.51); Absolute Neutrophil Count 7.2 X10^3/uL (2.0-7.7); Basophil# 0.19 X10^3/uL; Basophil% 1.6 % (0-1); Eosinophil# 0.58 X10^3/uL; Eosinophils% 4.8 % (0-5); Hematocrit 48.1 % (40-54); Hemoglobin 16.1 g/dL (13.0-16.5); Lymphocyte # 2.92 X10^3/ul (4.0); Mean Corp Hgb Conc 33.5 g/dL (32-36); Mean Corpuscular Hgb 30.1 pg (27.0-32.0); Mean Corpuscular Volume 90.1 fL (80-94); Mean Platelet Vol. 9.5 fl (6.2-12.0); Monocyte# 1.18 X10^3/uL; Monocyte% 9.7 % (0-10); NRBC Flagged by Analyzer 0 % (0-5); Neutrophil # 7.24 X10^3/uL (2.7-7.7); Neutrophil % 59.6 % (47-70); Platelet Count 345 K/mm3 (150-450); RBC Distribution Width CV 12.5 % (11.6-14.6); RBC Distribution Width SD 41.1 fl (35.1-43.9); Red Blood Count 5.34 M/mm3 (4.6-6.2); White Blood Count 12.2 K/mm3 (4.4-11.0)
[2020-05-09 21:02] LABS: ALB/GLOB Ratio 0.9 RATIO (0.9-2.4); AST(SGOT) 13 U/L (15-37); Alanine Aminotransfer ALT/SGPT 26 U/L (16-61); Albumin, Serum 3.7 g/dL (3.2-5.0); Alkaline Phosphatase 108 U/L (45-117); Anion Gap 7 (5-15); BUN 14 mg/dL (7-18); BUN/Creat Ratio 14.5 RATIO (10-20); Calcium,Total 8.5 mg/dL (8.5-10.1); Chloride 105 mmol/L (98-107); Creatinine, Serum 0.97 mg/dL (0.70-1.30); EST Glomerular Filtration Rate 84 mL/min (>60); Est Glom Filt Rate - Afr Amer 102 mL/min (>60); Estimated Creatinine Clearance 73.08 ml/min; Globulin 3.9 g/dL (2.2-4.2); Glucose 99 mg/dL (74-106); Potassium 3.6 mmol/L (3.5-5.1); Protein, Total 7.6 g/dL (6.4-8.2); Sodium Level 140 mmol/L (136-145)
[2020-05-09 21:24] VITALS: RESP 16
[2020-05-09 22:06] VITALS: RESP 16
--- NOTE | 2020-05-09 22:06 | ED.RN ---
PT REPORTS HE WANTS TO LEAVE, PT INFORMED THAT HE IS PINK SLIPPED BY THE PHYSICIAN, AND IS UNABLE TO LEAVE AT THIS TIME. PT INFORMED THAT THE COUNSELOR CANNOT BE CONTACTED UNTIL HE IS ABLE TO GIVE A URINE SPECIMAN. PT REPORTS, I AM TIRED OF BEING HERE AND I WANTT TO GET AWAY FROM ALL OFF THESE PEOPLE. PT REFUSING ANY ANXIETY MEDICATION AT THIS TIME. SITTER REMIANS AT BEDSIDE. WILL CONTINUE TO MONITOR.
[2020-05-09 22:53] LABS: Amphetamine Urine VISTA POSITIVE (<1000 ng/mL); Barbiturate Urine VISTA NEGATIVE (< 200 ng/mL); Benzodiazepine Urine VISTA NEGATIVE (< 200 ng/mL); Cocaine Urine VISTA NEGATIVE (< 300 ng/mL); Ecstacy Urine VISTA POSITIVE (< 500 ng/mL); Methadone Urine VISTA NEGATIVE (< 300 ng/mL); PCP Urine VISTA NEGATIVE (< 25 ng/mL); THC Urine VISTA NEGATIVE (< 50 ng/mL); Vista UDS pH Range 5
[2020-05-09 23:16] VITALS: RESP 15
[2020-05-10 00:09] VITALS: BP 143/93; PULSE 78; RESP 15; O2SAT 96
--- NOTE | 2020-05-10 00:10 | ED.RN ---
pt with 68 dollars freeman in wallet. pt refuses to lock money up in safe and insists on leaving it in his belongings bag. belongings placed in appropriate mental health bin and labeled with pt identifiers.
[2020-05-10 01:35] VITALS: RESP 18
--- NOTE | 2020-05-10 01:39 | ED.RN ---
crisis called to speak with patient at this time
[2020-05-10 02:12] VITALS: RESP 17
[2020-05-10 04:00] VITALS: BP 142/94; PULSE 75; RESP 20; O2SAT 94
--- NOTE | 2020-05-10 04:54 | ED.RN ---
Attempted to call report to [facility]. No extension was given, unable to utilize automatic extension system to reach the adult behavioral unit. Supervisor Communications And Signals states she did not get an extension.
--- NOTE | 2020-05-10 06:26 | ED.RN ---
REPORT CALLED TO MIKHAIL AT [facility].
== END 2020-05-10 04:30 ==
LOC: ED 20:27
PROVIDERS: Emergency Provider Emergency Medicine; PCP Family Medicine
DX: F20.9 Schizophrenia, unspecified (principal); R45.851 Suicidal ideations; F17.200 Nicotine dependence, unspecified, uncomplicated
CPT/HCPCS: 36415; 80053; 80307; 80320; 85025; 87635; 93005; 99284; G0480; U0003

== ENCOUNTER 2020-07-11 20:02 | Emergency (ER) | payer MEDICARE, SELFPAY ==
[2020-07-11 20:03] VITALS: BP 160/108; PULSE 96; RESP 16; TEMP 36.4; O2SAT 99; BMI 30.8
--- NOTE | 2020-07-11 20:33 | ED.DCSUM_ITS ---
History of Present Illness Chief Complaint: Suicidal Narrative: This patient is a 59-year-old male who presents with suicidal ideations. He states that over the last couple of days he has had increased bad thoughts. He has thoughts of harming himself. He wanted to shoot himself. He does not currently have access to a gun. No thoughts of harming anyone else. He is a schizophrenic. He denies any recent medical illness such as fevers vomiting cough. Past Medical History - Allergies and Home Meds Allergies/Adverse Reactions: Allergies No Known Allergies Allergy (Verified 07/11/20 20:05) Primary Care Physician: Armen Carranza MD [Primary Care Provider] - Past Medical History: - - Schizophrenia, hyperlipidemia Surgical History: noncontributory Smoking Status: Current every day smoker Review of Systems All systems negative except as indicated General: Denies: Fever Eyes: Denies: Visual changes - bilaterally ENT: Denies: Bilateral ear pain Cardiovascular: Denies: Chest pain Respiratory: Denies: Dyspnea Gastrointestinal: Denies: Nausea, Vomiting Musculoskeletal: Denies: Myalgias, Arthralgias Skin: Denies: Rash Psych: Reports: Suicidal thoughts, Suicidal ideations Hematologic: Denies: Easy bruising Allergy: Denies: Uticaria Physical Exam Vital Signs/Narrative: Vital Signs Temp Pulse Resp BP Pulse Ox 07/11/20 20:03 97.5 F L 96 16 160/108 H 99 General: Well nourished Head: Normocephalic Eyes: EOMI ENT: Moist mucous membranes Neck: Supple Cardiovascular: Regular rate Respiratory: No distress Abdomen: Soft, Nontender Skin: Normal color Neurological: Alert Psychological: - - Patient report suicidal thoughts, calm and cooperative with history and examination Diagnostic/Tx/Re-eval Laboratory Results 07/11/20 07/11/20 07/11/20 21:05 Unknown Unknown WBC 10.4 RBC 5.13 Hgb 15.5 Hct 45.8 MCV 89.3 MCH 30.2 MCHC 33.8 RDW Std Deviation 41.2 RDW Coeff of Luis Miguel 12.5 Plt Count 333 MPV 9.2 Immature Gran % (Auto) 0.400 Neut % (Auto) 59.0 Lymph % (Auto) 24.9 [place] % (Auto) 8.4 Eos % (Auto) 5.5 H Baso % (Auto) 1.8 H Absolute Neuts (auto) 6.1 Absolute Lymphs (auto) 2.58 Nucleated RBC % 0 Sodium 139 Potassium 3.7 Chloride 107 Carbon Dioxide 27.0 Anion Gap 5 BUN 15 Creatinine 0.96 Estim Creat Clear Calc 76.50 Est GFR (MDRD) Af Amer 102 Est GFR (MDRD) Non-Af 85 BUN/Creatinine Ratio 15.6 Glucose 123 H Calcium 8.4 L Urine Opiates Screen NEGATIVE Urine Methadone Screen NEGATIVE Ur Barbiturates Screen NEGATIVE Ur Phencyclidine Scrn NEGATIVE Ur Amphetamines Screen POSITIVE H U Methamphetamin-MDMA POSITIVE H U Benzodiazepines Scrn NEGATIVE Urine Cocaine Screen NEGATIVE U Cannabinoids Screen NEGATIVE Ur Drug Screen Comment Ethyl Alcohol 07/11/20 Unknown WBC RBC Hgb Hct MCV MCH MCHC RDW Std Deviation RDW Coeff of Luis Miguel Plt Count MPV Immature Gran % (Auto) Neut % (Auto) Lymph % (Auto) [place] % (Auto) Eos % (Auto) Baso % (Auto) Absolute Neuts (auto) Absolute Lymphs (auto) Nucleated RBC % Sodium Potassium Chloride Carbon Dioxide Anion Gap BUN Creatinine Estim Creat Clear Calc Est GFR (MDRD) Af Amer Est GFR (MDRD) Non-Af BUN/Creatinine Ratio Glucose Calcium Urine Opiates Screen Urine Methadone Screen Ur Barbiturates Screen Ur Phencyclidine Scrn Ur Amphetamines Screen U Methamphetamin-MDMA U Benzodiazepines Scrn Urine Cocaine Screen U Cannabinoids Screen Ur Drug Screen Comment Ethyl Alcohol < 3.0 - Medical Decision Making Medical clearance includes EKG. EKG shows normal sinus rhythm at a rate of 79 with no acute ischemic changes. Labs are notable for amphetamines and methamphetamines on urine drug screen. Patient has no Covid symptoms but a Covid test was requested by mental health facility. At this point patient is medically cleared. I do feel he meets criteria for long-term psychiatric hospitalization. Social work is seeing the patient to assist with arranging for an accepting facility. ED Disposition - Plan for ED Patient: Disposition: Psychiatric Hospital or Unit Diagnosis: Suicidal ideation Referrals: Armen Carranza MD [Primary Care Provider] -
--- NOTE | 2020-07-11 20:38 | CM.ED ---
SOCIAL WORK ASSESSMENT Informant: Dr. Serrano Reason for Consult: Suicidal Ideation Chief Compliant: Patient presents to [facility] ER with suicidal ideation with plan to shoot myself. Patient reports his brother has a gun. Patient admits to depression, visual and auditory hallucinations. Patient with history of schizophrenia. Marital/Social History: Single Living Situation: Patient reports lives in an apartment in [place], [place]. 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 Patient denies any current medication. Abuse Issues: Patient denies any history of emotional, physical or sexual abuse. Substance Abuse History: Patient admits to meth use to stay awake. Patient reports last use of meth was yesterday. Risk to Self/Others: Suicidal- Patient admits to suicidal ideation over the last 2 days. It's really bad this time. Patient reports plan to shoot myself. Patient states does have access to a gun. Homicidal- Patient denies any homicidal ideation. Mental Status Exam: Orientation- A&Ox3 Memory- Fair Appearance/General Behavior: disheveled, appropriate Mood/Affect: flat, depressed, anxious Communication Pattern: responds to questions Thought Process: hallucinations- auditory and visual Judgment: poor Assessment: Met with patient and Dr. Serrano in room. Introduced role and reason for referral. Sitter protocol in place. Patient reports suicidal ideation over the last few days. Patient reports plan to shoot myself. Patient admits to use of meth use yesterday to stay awake. Patient reports is not currently taking medications. Patient reports auditory and visual hallucinations. Patient believes would benefit from hospitalization. Dr. Serrano in agreement with hospitalization. This worker to facilitate placement. [place] Slip added to chart. Plan: Referral for inpatient psych hospitalization Luann St MSW, TECHNICIAN TEST SYSTEMS
[2020-07-11 20:40] LABS: Absolute Lymphocyte Count 2.58 X10^3/uL (0.83-4.51); Absolute Neutrophil Count 6.1 X10^3/uL (2.0-7.7); Basophil# 0.19 X10^3/uL; Basophil% 1.8 % (0-1); Eosinophil# 0.57 X10^3/uL; Eosinophils% 5.5 % (0-5); Hematocrit 45.8 % (40-54); Hemoglobin 15.5 g/dL (13.0-16.5); Lymphocyte # 2.58 X10^3/ul (4.0); Lymphocyte % 24.9 % (19-41); Mean Corp Hgb Conc 33.8 g/dL (32-36); Mean Corpuscular Hgb 30.2 pg (27.0-32.0); Mean Corpuscular Volume 89.3 fL (80-94); Mean Platelet Vol. 9.2 fl (6.2-12.0); Monocyte# 0.87 X10^3/uL; Monocyte% 8.4 % (0-10); NRBC Flagged by Analyzer 0 % (0-5); Neutrophil # 6.13 X10^3/uL (2.7-7.7); Platelet Count 333 K/mm3 (150-450); RBC Distribution Width CV 12.5 % (11.6-14.6); RBC Distribution Width SD 41.2 fl (35.1-43.9); Red Blood Count 5.13 M/mm3 (4.6-6.2); White Blood Count 10.4 K/mm3 (4.4-11.0)
[2020-07-11 20:53] LABS: Anion Gap 5 (5-15); BUN 15 mg/dL (7-18); BUN/Creat Ratio 15.6 RATIO (10-20); Calcium,Total 8.4 mg/dL (8.5-10.1); Chloride 107 mmol/L (98-107); Creatinine, Serum 0.96 mg/dL (0.70-1.30); EST Glomerular Filtration Rate 85 mL/min (>60); Est Glom Filt Rate - Afr Amer 102 mL/min (>60); Glucose 123 mg/dL (74-106); Potassium 3.7 mmol/L (3.5-5.1); Sodium Level 139 mmol/L (136-145)
[2020-07-11 21:05] LABS: Alcohol, Blood (Medical)-Serum < 3.0 mg/dL
[2020-07-11 21:41] LABS: Amphetamine Urine VISTA POSITIVE (<1000 ng/mL); Barbiturate Urine VISTA NEGATIVE (< 200 ng/mL); Benzodiazepine Urine VISTA NEGATIVE (< 200 ng/mL); Cocaine Urine VISTA NEGATIVE (< 300 ng/mL); Ecstacy Urine VISTA POSITIVE (< 500 ng/mL); Methadone Urine VISTA NEGATIVE (< 300 ng/mL); PCP Urine VISTA NEGATIVE (< 25 ng/mL); THC Urine VISTA NEGATIVE (< 50 ng/mL); Vista UDS pH Range 6
--- NOTE | 2020-07-11 22:05 | CM.ED ---
SOCIAL WORK Referral faxed and called to [facility]. Luann St, ROLL WEIGHER, SIZE MARKER
--- NOTE | 2020-07-11 22:28 | CM.ED ---
SOCIAL WORK SW end of shift. Nursing staff updated [facility] will need COVID-19 negative test prior to acceptance. Staff to fax results once obtained. Plan: Pending acceptance at [facility] Luann St MSW, MANAGER MARKETING
[2020-07-11 23:42] VITALS: BP 146/91; PULSE 76; RESP 16; TEMP 36.4; O2SAT 97
== END 2020-07-12 00:55 ==
PROVIDERS: Emergency Provider Emergency Medicine; PCP Family Medicine
DX: R45.851 Suicidal ideations (principal); E78.5 Hyperlipidemia, unspecified; F20.9 Schizophrenia, unspecified; F17.200 Nicotine dependence, unspecified, uncomplicated; Z20.828 Contact with and (suspected) exposure to other viral communicable diseases
CPT/HCPCS: 36415; 80048; 80307; 80320; 85025; 87426; 93005; 99285; G0480

== ENCOUNTER 2021-11-01 14:22 | Emergency (ER) | payer MEDICARE, SELFPAY ==
[2021-11-01 14:23] VITALS: BP 151/102; PULSE 98; RESP 18; TEMP 36.4; O2SAT 96; BMI 28.2
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
== END 2021-11-01 14:49 | disposition home or self-care (01) ==
PROVIDERS: Emergency Provider Emergency Medicine; PCP Family Medicine; Visit Provider Emergency Medicine
DX: S60.311A Abrasion of right thumb, initial encounter (principal); S60.312A Abrasion of left thumb, initial encounter; W22.8XXA Striking against or struck by other objects, initial encounter; Y93.55 Activity, bike riding; Y99.8 Other external cause status; L30.1 Dyshidrosis [pompholyx]; F17.210 Nicotine dependence, cigarettes, uncomplicated
CPT/HCPCS: 99282; J7030; A4216

== ENCOUNTER 2021-11-12 23:22 | Emergency (ER) | payer MEDICARE, SELFPAY ==
[2021-11-12 23:24] VITALS: BP 164/97; PULSE 81; RESP 20; TEMP 36.6; O2SAT 96; BMI 25.0
[2021-11-12 23:42] LABS: Absolute Lymphocyte Count 2.25 X10^3/uL (0.83-4.51); Absolute Neutrophil Count 6.3 X10^3/uL (2.0-7.7); Basophil# 0.14 X10^3/uL; Basophil% 1.4 % (0-1); Eosinophil# 0.44 X10^3/uL; Eosinophils% 4.4 % (0-5); Hematocrit 42.1 % (40-54); Lymphocyte # 2.25 X10^3/ul (0.83-4.51); Lymphocyte % 22.4 % (19-41); Mean Corp Hgb Conc 33.3 g/dL (32-36); Mean Corpuscular Hgb 29.3 pg (27.0-32.0); Mean Corpuscular Volume 88.1 fL (80-94); Monocyte# 0.92 X10^3/uL; Monocyte% 9.2 % (0-10); NRBC Flagged by Analyzer 0 % (0-5); Neutrophil # 6.27 X10^3/uL (2.7-7.7); Neutrophil % 62.4 % (47-70); Platelet Count 326 K/mm3 (150-450); RBC Distribution Width SD 41.8 fl (35.1-43.9); Red Blood Count 4.78 M/mm3 (4.6-6.2)
[2021-11-13] LABS: Alcohol, Blood (Medical)-Serum < 3.0 mg/dL
[2021-11-13 00:06] LABS: Anion Gap 5 (5-15); BUN 17 mg/dL (7-18); BUN/Creat Ratio 16.5 RATIO (10-20); CPK Total, Creatine Kinase 907 U/L (39-308); Calcium,Total 8.9 mg/dL (8.5-10.1); Chloride 109 mmol/L (98-107); Creatinine, Serum 1.03 mg/dL (0.70-1.30); EST Glomerular Filtration Rate 78 mL/min (>60); Est Glom Filt Rate - Afr Amer 94 mL/min (>60); Glucose 122 mg/dL (74-106); Potassium 3.3 mmol/L (3.5-5.1); Sodium Level 142 mmol/L (136-145)
--- NOTE | 2021-11-13 00:09 | EDS_ITS ---
HPI HPI - Psych History of Present Illness Chief Complaint: Substance Abuse Informant: patient and police/grocery clerk stocking Narrative Narrative: Patient is a 61-year-old male with history of schizophrenia and coronary artery disease presenting with paranoia. Apparently patient was at a gas station on a [place] trying to set up with gas and police were called to the scene. Patient states he was out hunting for mushrooms. He did have a shot gun on him. He states it was for protection. Patient made comments about wanting to if the officers took away his 4 klein. He was brought to the emergency room for further evaluation. Patient is highly concerned that he has worms in his body. He notes that he does use methamphetamines. He states he took meth yesterday and try to stay awake because he thinks that was trying to break into where he lives. Patient is complaining of right thumb pain where he thinks the worms are. Patient does not take any medication on a daily basis. No other complaints at this time. Patient currently denies any homicidal suicidal ideations to me. He states he did make the comment earlier but it was in reference to not having his 4 k[place] and he does not actually want to . PFSH PFSH Home Medications cyclobenzaprine 10 mg PO TID PRN 01/31/14 [History Last Taken Unknown] ibuprofen 800 mg PO DAILY 03/24/19 [History Last Taken Unknown] atorvastatin 20 mg PO QHS 07/11/20 [History Last Taken Unknown] Allergy/AdvReac Type Severity Reaction Status Date / Time No Known Allergies Allergy Verified 11/12/21 23:33 Surgical History no surgical history Social History Smoking Status: Current every day smoker tobacco type: cigarettes ROS ROS ED Constitutional Constitutional ED: Denies chills or fever(s) Eyes Eyes: Denies change in vision ENT ENT ED: Denies rhinorrhea Cardiovascular Cardiovascular: Denies chest pain Respiratory/Chest Respiratory/Chest: Denies dyspnea Gastrointestinal Gastrointestinal: Denies abdominal pain or vomiting Genitourinary Genitourinary ED: Denies dysuria Musculoskeletal Musculoskeletal: Denies arthralgias or myalgias Integumentary Reports rash Neurologic Neurologic: Denies headache(s) or weakness Psychiatric Psychiatric: Denies anxiety or depression EXAM Physical Exam Const Vital Signs: 11/12/21 23:24 11/13/21 01:47 Temperature 97.9 F Temperature Source Oral Pulse Rate 81 Respiratory Rate 20 H 18 Blood Pressure 164/97 H Blood Pressure Mean 119 Pulse Ox 96 97 Oxygen Delivery Method Room Air Room Air Positive well nourished and well developed General Appearance ED: well developed HEENT normocephalic and atraumatic Eyes PERRL and EOMs intact bilaterally Neck supple Resp normal respiratory effort and clear to auscultation bilaterally Cardio no murmurs Rate: regular rate Rhythm: regular rhythm GI non-tender and non-distended Palpation: soft Back/Spine no CVA tenderness Extremity normal to inspection General Extremety ED: Negative for edema or tenderness General Extremity: Negative for edema Neuro oriented x3 Sensorium / Orientation: alert Motor Exam: muscle tone normal throughout; Negative for general weakness Psych cooperative, affect normal, denies homicidal ideation and denies suicidal ideation Appearance: grossly normal Mood & Affect: anxious Thought Content: delusion(s) Delusional Thought Content Details: Positive for paranoid and obsession(s) Memory / Cognition: memory grossly intact Insight: fair Judgement: judgement good Skin Skin Narrative: Patient has mild erythema and tenderness around the cuticles of the right thumb. Patient does not have any visualized worms. Rashes: no rashes MDM MDM MDM Narrative Medical decision making narrative: Patient is brought in for concern of paranoia and suicidal ideations. Patient currently denies any suicidal ideations. It seems the patient was just upset that the police were going to take away his firearm and [address]. Patient does have a fixed delusion about having worms in his skin. I suspect is related to his history of schizophrenia and methamphetamine abuse. Will be evaluated by crisis. Patient is calm and cooperative in the emergency room. Is evaluated by crisis. [place] to be safe to discharge home. Patient is calm and cooperative in the ER. Continues to deny any HI or SI. Counseled on gun safety. Given referral to the counseling center. Patient does appear to be able to take care of himself. Is given 1 dose of Ativan to help with his fixed delusion about parasites in the ER. Lab Data Labs: Laboratory Results - last 24 hr 11/12/21 11/12/21 11/12/21 23:35 23:35 23:35 WBC 10.0 RBC 4.78 Hgb 14.0 Hct 42.1 MCV 88.1 MCH 29.3 MCHC 33.3 RDW Std Deviation 41.8 RDW Coeff of Luis Miguel 13.0 Plt Count 326 MPV 9.0 Immature Gran % (Auto) 0.200 Neut % (Auto) 62.4 Lymph % (Auto) 22.4 Kingfisher % (Auto) 9.2 Eos % (Auto) 4.4 Baso % (Auto) 1.4 H Absolute Neuts (auto) 6.3 Absolute Lymphs (auto) 2.25 Nucleated RBC % 0 Sodium 142 Potassium 3.3 L Chloride 109 H Carbon Dioxide 28.0 Anion Gap 5 BUN 17 Creatinine 1.03 Estim Creat Clear Calc 67.10 Est GFR (MDRD) Af Amer 94 Est GFR (MDRD) Non-Af 78 BUN/Creatinine Ratio 16.5 Glucose 122 H Calcium 8.9 Total Creatine Kinase 907 H Urine Opiates Screen Urine Methadone Screen Ur Barbiturates Screen Ur Phencyclidine Scrn Ur Amphetamines Screen MDMA (Ecstasy) Screen U Benzodiazepines Scrn Urine Cocaine Screen U Cannabinoids Screen Ur Drug Screen Comment Ethyl Alcohol < 3.0 11/13/21 01:40 WBC RBC Hgb Hct MCV MCH MCHC RDW Std Deviation RDW Coeff of Luis Miguel Plt Count MPV Immature Gran % (Auto) Neut % (Auto) Lymph % (Auto) Kingfisher % (Auto) Eos % (Auto) Baso % (Auto) Absolute Neuts (auto) Absolute Lymphs (auto) Nucleated RBC % Sodium Potassium Chloride Carbon Dioxide Anion Gap BUN Creatinine Estim Creat Clear Calc Est GFR (MDRD) Af Amer Est GFR (MDRD) Non-Af BUN/Creatinine Ratio Glucose Calcium Total Creatine Kinase Urine Opiates Screen NEGATIVE Urine Methadone Screen NEGATIVE Ur Barbiturates Screen NEGATIVE Ur Phencyclidine Scrn NEGATIVE Ur Amphetamines Screen POSITIVE H MDMA (Ecstasy) Screen POSITIVE H U Benzodiazepines Scrn NEGATIVE Urine Cocaine Screen NEGATIVE U Cannabinoids Screen NEGATIVE Ur Drug Screen Comment Ethyl Alcohol Discharge Plan Triage Chief Complaint: Substance Abuse ED Provider: Delores Bennett Dx/Rx/DC Orders Clinical Impression: Delusions of parasitosis, Methamphetamine abuse Instructions: ED Drug Abuse Prescriptions: No Action cyclobenzaprine 10 MG tablet 10 mg PO TID PRN (Reason: muscle relaxer) RF: 0 ibuprofen 800 MG tablet 800 mg PO DAILY RF: 0 atorvastatin 20 MG tablet 20 mg PO QHS RF: 0 Primary Care Provider: Armen Carranza Referrals: Counseling,Center [GROUP OF PHYSICIANS] - Armen Carranza MD [Primary Care Provider] - Activity Restrictions/Additional Instructions: Based on my physical exam today I do not see any evidence of any worms or parasites on your body or in your skin. Continue using the cream prescribed to help with your fingers. Disposition Disposition: Home, Self Care
[2021-11-13] MEDS: LORazepam 0.5 MG Tablet PO (00:20)
[2021-11-13 01:47] VITALS: RESP 18; O2SAT 97
[2021-11-13 02:14] LABS: Amphetamine Urine VISTA POSITIVE (<1000 ng/mL); Barbiturate Urine VISTA NEGATIVE (< 200 ng/mL); Benzodiazepine Urine VISTA NEGATIVE (< 200 ng/mL); Cocaine Urine VISTA NEGATIVE (< 300 ng/mL); Ecstacy Urine VISTA POSITIVE (< 500 ng/mL); Methadone Urine VISTA NEGATIVE (< 300 ng/mL); PCP Urine VISTA NEGATIVE (< 25 ng/mL); THC Urine VISTA NEGATIVE (< 50 ng/mL); Vista UDS pH Range 6
[2021-11-13 05:02] VITALS: BP 132/98; PULSE 88; O2SAT 99
== END 2021-11-13 05:09 | disposition home or self-care (01) ==
PROVIDERS: Emergency Provider Emergency Medicine; PCP Family Medicine; Visit Provider Emergency Medicine
DX: F15.10 Other stimulant abuse, uncomplicated (principal); F20.9 Schizophrenia, unspecified; F22 Delusional disorders; I25.10 Atherosclerotic heart disease of native coronary artery without angina pectoris; F17.210 Nicotine dependence, cigarettes, uncomplicated; Z79.899 Other long term (current) drug therapy
CPT/HCPCS: 80048; 80307; 82077; 82550; 85025; 87811; 99285

== ENCOUNTER 2021-12-03 12:10 | Emergency (ER) | payer MEDICARE, SELFPAY ==
[2021-12-03] VITALS (11 sets, daily range): BP systolic 132–152; BP diastolic 70–91; PULSE 88–89; RESP 15–17; TEMP 36.7–36.9; O2SAT 95–96; BMI 27.0
--- NOTE | 2021-12-03 12:42 | EKG12_ITS ---
Test Reason : [facility] [place] Blood Pressure : / mmHG Vent. Rate : 083 BPM Atrial Rate : 083 BPM P-R Int : 152 ms QRS Dur : 096 ms QT Int : 368 ms P-R-T Axes : 071 245 080 degrees QTc Int : 432 ms Normal sinus rhythm Indeterminate axis Borderline ECG Confirmed by JOHNNY RUST, TOSHIA ([id number]), film or videotape editor MICAH HUFFMAN ([id number]) on 12/05/2021 10:46:55 AM Referred By: Confirmed By:TOSHIA TURNER MD
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
[2021-12-03 13:18] LABS: Absolute Lymphocyte Count 1.99 X10^3/uL (0.83-4.51); Absolute Neutrophil Count 8.6 X10^3/uL (2.0-7.7); Basophil# 0.15 X10^3/uL; Basophil% 1.2 % (0-1); Eosinophil# 0.37 X10^3/uL; Eosinophils% 3.1 % (0-5); Hematocrit 46.9 % (40-54); Hemoglobin 15.4 g/dL (13.0-16.5); Lymphocyte # 1.99 X10^3/ul (0.83-4.51); Lymphocyte % 16.5 % (19-41); Mean Corp Hgb Conc 32.8 g/dL (32-36); Mean Corpuscular Hgb 29.4 pg (27.0-32.0); Mean Corpuscular Volume 89.5 fL (80-94); Mean Platelet Vol. 9.5 fl (6.2-12.0); Monocyte# 0.86 X10^3/uL; Monocyte% 7.1 % (0-10); NRBC Flagged by Analyzer 0 % (0-5); Neutrophil # 8.64 X10^3/uL (2.7-7.7); Neutrophil % 71.5 % (47-70); Platelet Count 456 K/mm3 (150-450); RBC Distribution Width CV 12.7 % (11.6-14.6); RBC Distribution Width SD 41.4 fl (35.1-43.9); Red Blood Count 5.24 M/mm3 (4.6-6.2); White Blood Count 12.1 K/mm3 (4.4-11.0)
[2021-12-03 13:29] LABS: Anion Gap 6 (5-15); BUN 11 mg/dL (7-18); Calcium,Total 9.2 mg/dL (8.5-10.1); Chloride 102 mmol/L (98-107); Creatinine, Serum 0.85 mg/dL (0.70-1.30); EST Glomerular Filtration Rate 97 mL/min (>60); Est Glom Filt Rate - Afr Amer 118 mL/min (>60); Estimated Creatinine Clearance 78.38 ml/min; Glucose 132 mg/dL (74-106); Potassium 3.5 mmol/L (3.5-5.1); Sodium Level 140 mmol/L (136-145)
[2021-12-03 13:37] LABS: Amphetamine Urine VISTA NEGATIVE (<1000 ng/mL); Barbiturate Urine VISTA NEGATIVE (< 200 ng/mL); Benzodiazepine Urine VISTA NEGATIVE (< 200 ng/mL); Cocaine Urine VISTA NEGATIVE (< 300 ng/mL); Ecstacy Urine VISTA NEGATIVE (< 500 ng/mL); Methadone Urine VISTA NEGATIVE (< 300 ng/mL); PCP Urine VISTA NEGATIVE (< 25 ng/mL); THC Urine VISTA NEGATIVE (< 50 ng/mL); Vista UDS pH Range 7
[2021-12-03 13:47] LABS: Alcohol, Blood (Medical)-Serum < 3.0 mg/dL
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
--- NOTE | 2021-12-03 20:02 | CM.ED ---
[facility]ONY [facility]. ANTHONY called [facility] at [facility]. THey did not get the medical documentation so requested it be faxed again. ANTHONY faxed medical clearance to [facility]. ANTHONY called Shanice at the counseling center. They received medical documentation. She will referral to the [facility]. ANTHONY called Shanice to follow up on the referral. She stated she DID not make referral to the [facility] but their sister facility, [facility]. Patient's referral packet is currently being reviewed. Plan: Inpatient psych Tammy BASS
--- NOTE | 2021-12-03 23:33 | ED.RN ---
crisis called they are still working on placement at this time. they are faxing paper work over at this time
[2021-12-04] VITALS (10 sets, daily range): BP systolic 114–154; BP diastolic 84–96; PULSE 78–90; RESP 14–18; TEMP 36.7–37.2; O2SAT 94–96
--- NOTE | 2021-12-04 01:34 | ED.RN ---
patient information sent to [facility] they are reviewing case. they will call back in AM with possible bed. Crisis made aware. Crisis having trouble placing patient due to patient out of medicaid pysch days but not out of medicaid hospital days. Crisis still working on placement of patient
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
--- NOTE | 2021-12-04 14:19 | NURSING ---
CALLED [facility], ETA IS 20 MIN
--- NOTE | 2021-12-04 15:35 | CM.ED ---
Social Work Note SW received call from Vinh with [facility]PS stating [facility] an [facility] referral and they are willing to see pt for Mental Health and CM services. Vinh states she would like to update on pt's discharge. Pt has been accepted to [facility]. Accepting doctor is Dr. Kong, [address]. RN to RN number is [phone]. Vinh with [facility]PS updated on pt's discharge. Lamar Brenner CHOCOLATE DIPPER, LOUVER DOOR ASSEMBLER
== END 2021-12-04 14:45 ==
PROVIDERS: Emergency Provider Emergency Medicine; PCP Family Medicine; Visit Provider Emergency Medicine
DX: F20.0 Paranoid schizophrenia (principal); E78.00 Pure hypercholesterolemia, unspecified; F15.90 Other stimulant use, unspecified, uncomplicated; Z59.00 Homelessness unspecified; I10 Essential (primary) hypertension; R45.851 Suicidal ideations; F17.210 Nicotine dependence, cigarettes, uncomplicated; F32.A Depression, unspecified; R45.850 Homicidal ideations; I25.10 Atherosclerotic heart disease of native coronary artery without angina pectoris; Z91.52 Personal history of nonsuicidal self-harm; Z91.19 Patient's noncompliance with other medical treatment and regimen
CPT/HCPCS: 80048; 80307; 82077; 85025; 87811; 93005; 99285

== ENCOUNTER 2024-09-10 16:42 | Emergency (ER) | payer MEDICARE, MEDICAID, SELFPAY ==
[2024-09-10 16:45] VITALS: BP 138/76; PULSE 78; RESP 16; TEMP 37.1; O2SAT 98; BMI 24.5
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
== END 2024-09-10 17:12 ==
PROVIDERS: Emergency Provider Emergency Medicine; PCP Family Medicine; Visit Provider Emergency Medicine
DX: S00.81XA Abrasion of other part of head, initial encounter (principal); F20.0 Paranoid schizophrenia; S60.511A Abrasion of right hand, initial encounter; I25.10 Atherosclerotic heart disease of native coronary artery without angina pectoris; F17.210 Nicotine dependence, cigarettes, uncomplicated; X58.XXXA Exposure to other specified factors, initial encounter
CPT/HCPCS: 99284

== ENCOUNTER 2024-11-14 01:20 | Inpatient (IN) | payer MEDICARE, MEDICAID, SELFPAY ==
[2024-11-14] VITALS (15 sets, daily range): BP systolic 117–186; BP diastolic 55–98; PULSE 71–118; RESP 18–24; TEMP 35.5–37.7; O2SAT 83–97; BMI 27.6; BMI 26.2
--- NOTE | 2024-11-14 01:23 | EDS_ITS ---
HPI History of Present Illness Chief Complaint: Shortness of Breath [facility] Medical History High cholesterol HTN (hypertension) CAD (coronary artery disease) Schizophrenia Home Medications ?Medication ?Instructions ?Recorded ?Last Taken ?Type NK 12/03/21 Unknown History Allergy/AdvReac Type Severity Reaction Status Date / Time No Known Allergies Allergy Verified 11/14/24 01:21 Social History housing: homeless Smoking Status: Current every day smoker tobacco type: cigarettes substance use type: methamphetamine MDM MDM MDM Narrative Medical decision making narrative: HISTORY OF PRESENT ILLNESS: Chief complaint: Shortness of breath, cough 64-year-old male history of schizoaffective disorder, CAD, hypertension, hyperlipidemia presents concern for shortness of breath and cough. The patient states the last few days he developed shortness of breath, chest pain and cough. He further states he has had 4 days of cough congestion. No fever. No chest pain with cough only. Pain is sharp and exacerbated by cough. Denies hemoptysis. Denies any other PE risk factors. Denies leg swelling. Notes he smoked for over 40 years. No sick contacts that he knows of REVIEW OF SYSTEMS: Pertinent positives: Shortness of breath, cough Pertinent negatives: Syncope, PHYSICAL EXAM: Nursing triage notes reviewed, Vital signs reviewed Constitutional: please see mdm HENT: MMM Eyes: Pupils equal round and reactive to light, Extraocular muscles intact Neck: No stridor, no JVD, full neck ROM Lungs: Some mild increased work of breathing initially noted, conversational dyspnea, expiratory wheezing auscultated, no rales. Heart: Regular rate and rhythm, No murmurs, No rubs and No gallops, 2+ distal pulses (radial, femoral, posterior tibial) in all extremities Abdomen: Soft, there is no tenderness, rigidity, rebound or guarding, no obvious peritoneal signs, no palpable pulsatile abdominal masses, no auscultated abdominal bruit : No CVAT Extremities: No edema Neuro: No new focal neurological deficits, cranial nerves II through XII intact, 5/5 strength in all present extremities. Intact sensation to light touch in all present extremities, 2+ reflexes bilateral patella tendons. Skin: No sign of cellulitis or other infectious etiology in lower extremities, upper extremities, buttocks, chest, pelvic area, perineum, back abdomen etc. MEDICAL DECISION MAKING: Chief Complaint: please see HPI External records reviewed: Reviewed prior cardiovascular testing, no prior imaging studies Factors affecting care: as per HPI Social determinants of health: undomiciled History obtained from others: none Consults: Internal medicine (Dr. Quiñonez) [facility] Narrative: Patient was initially hypertensive with blood pressure 186/98, tachycardic with initial heart rate of 118, tachypneic with respirate 24, borderline febrile with initial temperature 99.9,saturating well on room air. Patient was coughing. Cough is nonproductive and dry. Initial lung exam with bilateral wheezing. No obvious consolidation auscultated although with some asymmetry of breath sounds with right with more wheezing than left. I considered the following differential diagnosis: Pneumonia, viral URI, anemia, arrythmia, electrolyte disturbance, PE, COPD exacerbation I obtained a broad lab and imaging workup to further elucidate etiology of the patient's complaints. Initially treat the patient with 500 cc bolus, DuoNeb, Tylenol for borderline fever and codeine for cough. Added lactate to assess for signs of endorgan hypoperfusion that would indicate sepsis. Added a VBG to assess for signs of CO2 retention. Initially gave the patient breathing treatments and steroid empirically for presumed COPD ALL IMAGES (IF OBTAINED) HAVE BEEN PERSONALLY REVIEWED AND INTERPRETED BY MYSELF. EKG with sinus tachycardia with a rate of 102, left axis deviation, normal intervals, no STEMI I have personally reviewed the patient's chest x-ray. Chest x-ray is concerning for left lower lobe pneumonia. Radiologist read the x-ray is negative which prompted CT scan to further clarify VBG without evidence of respiratory acidosis or CO2 retention CBC with leukocytosis suggestive of severe systemic inflammation, no anemia thro mbocytopenia High-sensitivity troponin is negative, no evidence of myocardial ischemia CMP without evidence of acute kidney injury, significant electrolyte abnormality, anion gap to suggest end organ hypo-perfusion, no evidence of metabolic acidosis with a normal bicarbonate, no evidence of hepatobiliary obstructive pathology. COVID/RSV/flu negative Initial lactate elevated consistent with endorgan perfusion likely sepsis. Given elevated white blood cell count, initial vital sign abnormalities elevated lactate blood cultures were drawn. Urine and urine culture was drawn to complete sepsis workup. CTA of the chest showed signs of pulmonary inflammation Repeat lactate showed improvement suggesting appropriate cessation Ambulatory pulse ox showed significant desaturation to 83% requiring a new 2 L oxygen requirement. Given signs of pulm inflammation, cough, fever, initial vital signs are consistent with SIRS concerning for sepsis as well as exertional hypoxia patient was treated with ceftriaxone erythromycin for empiric antimicrobial coverage and admitted to PCU under Dr. Clements. The patient and/or family, caregivers express understanding. The patient and/or family, caregivers agrees with the plan. Shared decision making: I will have a discussion with the patient and or visitors regarding risk/benefits of further testing or admission. They will be made aware of of t he risk/benefits inherent in this decision they will be given the opportunity to voice understanding. Total critical care time today provided was at least 0 minutes. This excludes separately billable procedures. Critical care time (if documented) is secondary to the patient having high probability of clinically significant/life threatening deterioration in the patient's condition which required my urgent intervention. Impression: 1. Cough 2. Dyspnea 3. Sepsis 4. Leukocytosis 5. Community-acquired pneumonia Dispo: Admit to PCU This note was generated with [employer] dictation software. It may contain incorrect words, spelling, and punctuation that were not noted in review of the chart prior to signing. Discharge Plan Triage Chief Complaint: Shortness of Breath ED Provider: Nilson Benson Dx/Rx/DC Orders Primary Care Provider: Armen Carranza
--- NOTE | 2024-11-14 01:33 | EKG12_ITS ---
Test Reason : Blood Pressure : */* mmHG Vent. Rate : 102 BPM Atrial Rate : 102 BPM P-R Int : 144 ms QRS Dur : 92 ms QT Int : 338 ms P-R-T Axes : 76 -86 79 degrees QTcB Int : 440 ms Sinus tachycardia with Premature atrial complexes Left axis deviation Abnormal ECG Confirmed by SALVADOR RUST, JOSHUA ([id number]), rewrite editor OMID ROE ([id number]) on 11/17/2024 11:51:13 AM Referred By: Confirmed By: JOSHUA FRANCO MD
[2024-11-14] MEDS: Acetaminophen/Codeine #3 Tablet 1 TABLET PO (01:40)
[2024-11-14] MEDS: MethylPREDNISolone 125 MG/2 ML Vial IV (01:40)
[2024-11-14] MEDS: Ipratropium/Albuterol Sulfate 3 ML AMPUL.NEB INHALATION ×2 (01:40→20:02)
[2024-11-14] MEDS: 0.9% Normal Saline (500mL Bag) 500 ML 999 ML IV (01:44)
--- NOTE | 2024-11-14 01:53 | RAD_ITS ---
PROCEDURE: CHEST 1 VIEW (PORTABLE) 11/14/2024 REASON FOR EXAM: COUGH, SHORTNESS OF BREATH TECHNIQUE: Frontal view of the chest. COMPARISON: None. FINDINGS: Cardiac size and pulmonary vasculature are within normal limits. No consolidation, pleural effusion, or pneumothorax is present. RAD/Chest 1 View (Portable) IMPRESSION: No acute cardiopulmonary process. Reading Location: [facility]
[2024-11-14 01:54] LABS: Blood Gas Specimen Type VEN; O2 Delivery Device Room Air; SITE Not entered; VBG BASE EXCESS 5 mmol/L (-1.0-3.5); VBG Bicarbonate 30 mmol/L (22-26); VBG PO2 82 mmHg (25-40); VBG SO2 96 % (50-70); VBG TCO2 32 mmol/L (23-33); VBG pCO2 48.2 mmHg (41-51)
[2024-11-14 01:54] LABS: Absolute Lymphocyte Count 0.98 X10^3/uL (0.83-4.51); Absolute Neutrophil Count 20.7 X10^3/uL (2.0-7.7); Basophil# 0.13 X10^3/uL; Basophil% 0.5 % (0-1); Eosinophil# 0.03 X10^3/uL; Eosinophils% 0.1 % (0-5); Hematocrit 43.2 % (40-54); Hemoglobin 14.6 g/dL (13.0-16.5); Lymphocyte # 0.98 X10^3/ul (0.83-4.51); Lymphocyte % 4.1 % (19-41); Mean Corp Hgb Conc 33.8 g/dL (32-36); Mean Corpuscular Hgb 30.1 pg (27.0-32.0); Mean Corpuscular Volume 89.1 fL (80-94); Mean Platelet Vol. 9.2 fl (6.2-12.0); Monocyte# 1.66 X10^3/uL; NRBC Flagged by Analyzer 0 % (0-5); Neutrophil # 20.74 X10^3/uL (2.7-7.7); Neutrophil % 87.8 % (47-70); POSITIVE DIFFERENTIAL YES; Platelet Count 345 K/mm3 (150-450); RBC Distribution Width CV 12.8 % (11.6-14.6); RBC Distribution Width SD 41.9 fl (35.1-43.9); Red Blood Count 4.85 M/mm3 (4.6-6.2); White Blood Count 23.7 K/mm3 (4.4-11.0)
[2024-11-14 01:55] LABS: Differential Indicated SCAN CRITERIA MET
[2024-11-14 02:10] LABS: Anion Gap 13 (5-15); BUN 17 mg/dL (4-19); BUN/Creat Ratio 21.6 RATIO (10-20); Calcium,Total 9.1 mg/dL (7.6-11.0); Carbon Dioxide 25.8 mmol/L (21.0-32.0); Chloride 98 mmol/L (98-108); Creatinine, Serum 0.77 mg/dL (0.70-1.20); EST Glomerular Filtration Rate 99 (>60); Estimated Creatinine Clearance 87.32 ml/min (50-250); Glucose 223 mg/dL (70-99); Potassium 3.9 mmol/L (3.3-5.1); Sodium Level 137 mmol/L (133-145); Troponin T High Sensitivity 15 ng/L (<=22)
[2024-11-14 02:32] LABS: Differential Comment SCANNED
[2024-11-14 02:33] LABS: Lactic Acid 2.2 mmol/L (0.0-2.0)
--- NOTE | 2024-11-14 02:37 | CT_ITS ---
PROCEDURE: CTA CHEST W/WO CONTRAST 11/14/2024 REASON FOR EXAM: COUGH, CP, SOB TECHNIQUE: CTA imaging of the chest with intravenous contrast. Multiplanar and multisequence images were obtained. 3D, 3D post processing, 3D reconstructions, Maximum intensity projection (MIPs) Volume rendering and Shaded surface rendering was provided. CONTRAST: VOLUME: 100 mL One or more dose reduction techniques were used (e.g., Automated exposure control, adjustment of the mA and/or kV according to patient size, use of iterative reconstruction technique). RADIATION DOSE SUMMARY: CTDlvol: 20.56 MGy DLP: 408.83 mGycm COMPARISON: Chest x-ray from 11/14/2024. FINDINGS: There is no evidence of pulmonary embolism. Thoracic aorta demonstrates a normal caliber with no evidence of aneurysm or dissection. There are mild atherosclerotic calcifications of the thoracic aorta. Origins of the great vessels are patent. Cardiac size is within normal limits. Mild coronary artery calcifications are identified. There is mediastinal and bilateral hilar lymphadenopathy. No pericardial or pleural effusion is present. Mild bilateral retroareolar soft tissue attenuation likely relates to gynecomastia. There is an intramuscular lipoma along the lateral chest wall musculature. Evaluation of the lung parenchyma demonstrates emphysematous changes. There is mild biapical scarring. There are scattered ground-glass opacities in the bilateral lungs as well as reticulonodular opacities likely on an infectious inflammatory basis. Central airway is patent. No pneumothorax is present. Upper abdomen demonstrates no acute findings. Evaluation of the osseous structures demonstrates no acute findings. CT/CTA Chest W/WO Contrast IMPRESSION: 1. No CT evidence of pulmonary embolism. 2. Scattered ground-glass opacities in the bilateral lungs as well as reticulon odular opacities likely on an infectious inflammatory basis. Continued follow-up is recommended to ensure resolution. 3. Mediastinal and bilateral hilar lymphadenopathy likely reactive to #2. 4. Additional findings as above. Reading [facility]
[2024-11-14 03:30] LABS: Bacteria 0 SEEN /hpf (None Seen); Mucous, Urine 0 SEEN /hpf (<or=2+); Red Blood Cells-Urine 0 SEEN /hpf (0-5); Squamous Epithelial Cells - UA 0 SEEN /hpf (0-5); White Blood Cells 0 SEEN /hpf (0-5)
[2024-11-14 03:31] LABS: Color, Urine Yellow (Yellow); Glucose, Dipstick 50 mg/dl (Normal); Ketone-Dipstick Negative (Negative); Leukocyte Esterase-Dipstick Negative /ul (Negative); Nitrite-Dipstick Negative (Negative); Occult Blood-Urine 10 /ul (Negative); Protein-Dipstick 100 mg/dl (Negative); Specific Gravity, Urine 1.015 (1.002-1.030); Urine Bilirubin Dipstick Negative (Negative); Urine Clarity Clear (Clear); Urine Urobilinogen Normal (Normal)
--- NOTE | 2024-11-14 03:44 | HP.PCM.HOS_ITS ---
[facility] - General General Date of Admission: 11/14/24 Date of Service: 11/14/24 Chief Complaint: SOB and Wheezing. HPI Narrative TAMIKO CASTILLO, is a 64 M with a past medical history of essential hypertension; currently not on treatment, hyperlipidemia; currently not on treatment, overweight; with BMI of 27.7 this admission, CAD, history of methamphetamine abuse, schizophrenia; currently not on treatment, OA; with chronic back pain and being homeless who presents to [facility] ER complaining of shortness of breath and wheezing. Mr. Castillo reports his symptoms began ~3-4 days prior to admission with a gradual-onset of dyspnea on exertion that progressed to shortness of breath at rest. He also admits to expiratory wheezing and nonproductive cough that have worsened over the past 4 days. He denies recent sick contacts or similar previous episodes. There was no report of associated fever, chills, nausea, vomiting, diarrhea, constipation, abdominal pain, chest pain, headache or rash. In the ER he was noted to have a low-grade fever of 99.9 ?F with Leukocytosis of 23.7K and Lactic Acidosis of 2.2 mmol/L both present on admission with a corresponding CXR that revealed no acute process and CTA of the chest with IV contrast that showed no CT evidence of PE with scattered ground-glass opacities in bilateral lungs as well as reticulonodular opacities likely on an infectious/inflammatory basis due to suspected Pneumonia complicated by clinical evidence of AE COPD in the setting of ongoing Tobacco Abuse he was then admitted to the PCU for treatment under the sepsis protocol for a stay that is expected to extend beyond 2 midnights. COUNT INCLUDES THE [facility] Medical History (Updated 11/14/24 @ 04:55 by Selena Davis) Chronic pain High cholesterol HTN (hypertension) CAD (coronary artery disease) Schizophrenia Home Medications ?Medication ?Instructions ?Recorded ?Last Taken ?Type NK 12/03/21 Unknown History Allergy/AdvReac Type Severity Reaction Status Date / Time No Known Allergies Allergy Verified 11/14/24 01:21 Social History housing: homeless Smoking Status: Current every day smoker tobacco type: cigarettes substance use type: methamphetamine ROS ROS Narrative Review of Systems: Constitutional: Patient denies fever or chills. Eyes: Patient denies changes in vision or discharge from eyes. ENT: Patient denies runny nose, sore throat or ear pain. Resp: Patient admits to dyspnea on exertion that progressed to shortness of breath at rest with wheezing and nonproductive cough. CV: Patient admits to chest pain with cough but he denies heart racing, palpitations or lower extremity edema. GI: Patient denies abdominal pain, nausea, vomiting, diarrhea or constipation. : Patient denies dysuria, hematuria or urinary frequency. MSK: Patient denies arthralgias or myalgias. Skin: Patient denies rash, abscess, wounds or jaundice. Psych: Patient denies symptoms of uncontrolled depression or anxiety. Neuro: Patient denies headache, paresthesias or focal neurologic deficits. Allergy: Patient denies lip swelling, tongue swelling or urticaria. Hematology: Patient denies easy bleeding or easy bruisability. Endocrinology: Patient denies polyuria, polydipsia, polyphagia or heat/cold intolerance. 14 point ROS otherwise negative except for positives noted above in HPI. Vital Signs Vital Signs Vital Signs: 11/14/24 01:21 11/14/24 01:24 11/14/24 01:24 Temperature 99.9 F H 99.9 F H Temperature Source Oral Oral Pulse Rate 118 H 112 H Respiratory Rate 24 H 24 H Respiratory Effort Short of Breath Labored Accessory Muscle Use Respiratory Depth Shallow Respiratory Pattern Tachypnea Blood Pressure 186/98 H 186/98 H Blood Pressure Mean 127 127 Pulse Ox 94 94 Oxygen Delivery Method Room Air Room Air Room Air Oxygen Flow Rate (L/min) 11/14/24 01:40 11/14/24 01:42 11/14/24 02:24 Temperature 98.5 F Temperature Source Oral Pulse Rate 100 87 Respiratory Rate 19 H 22 H Respiratory Effort Respiratory Depth Respiratory Pattern Blood Pressure 160/77 H Blood Pressure Mean 104 Pulse Ox 92 Oxygen Delivery Method Room Air Room Air Oxygen Flow Rate (L/min) 11/14/24 03:00 11/14/24 03:28 11/14/24 03:29 Temperature 98.5 F Temperature Source Oral Pulse Rate 77 Respiratory Rate 20 H 18 Respiratory Effort Respiratory Depth Respiratory Pattern Blood Pressure 147/72 H Blood Pressure Mean 97 Pulse Ox 92 83 97 Oxygen Delivery Method Room Air Room Air Nasal Cannula Oxygen Flow Rate (L/min) 2 Weight Weight: 166 lb 3.657 oz Body Mass Index (BMI) 27.6 Physical Exam Const alert, oriented x3 and average body habitus Constitutional Narrative: Mild distress noted with patient unkempt and malodorous. General Appearance: cooperative HEENT normocephalic, head/scalp atraumatic, hearing grossly normal bilaterally and moist oral mucous membranes Eyes PERRL and EOMs intact bilaterally Neck no lymphadenopathy, supple and no JVD Resp Resp Narrative: Diminished breath sounds throughout with scattered expiratory wheezing. Auscultation: wheezes Cardio regular rate and regular rhythm GI normal to inspection, nondistended, normoactive bowel sounds, soft to palpation, non-tender and non-distended Extremity normal to inspection, full ROM and no clubbing, cyanosis or edema Skin Skin Narrative: Patient has evidence of rash, abscess, wounds or jaundice. Neuro oriented x3, CN's II-XII intact bilaterally, moves all extremities and no focal motor deficits Sensorium / Orientation: awake, alert, oriented to person, oriented to place and oriented to time Speech: speech normal Psych affect normal Results Medical Records Data Attestation: I reviewed the patient's medical records Lab / Micro Data Attestation: I reviewed the patient's lab results. 11/14/24 01:46 11/14/24 01:46 Labs: Laboratory Results - last 24 hr 11/14/24 01:46: WBC 23.7 H, RBC 4.85, Hgb 14.6, Hct 43.2, MCV 89.1, MCH 30.1, MCHC 33.8, RDW Std Deviation 41.9, RDW Coeff of Luis Miguel 12.8, Plt Count 345, MPV 9.2, Immature Gran % (Auto) 0.500, Neut % (Auto) 87.8 H, Lymph % (Auto) 4.1 L, [place] % (Auto) 7.0, Eos % (Auto) 0.1, Baso % (Auto) 0.5, Absolute Neuts (auto) 20.7 H, Absolute Lymphs (auto) 0.98, Nucleated RBC % 0, Differential Comment SCANNED, Sodium 137, Potassium 3.9, Chloride 98, Carbon Dioxide 25.8, Anion Gap 13, BUN 17, Creatinine 0.77, Estim Creat Clear Calc 87.32, Est GFR (MDRD) Non-Af 99, BUN/Creatinine Ratio 21.6 H, Glucose 223 H, Lactic Acid 2.2 H*, Calcium 9.1, Troponin T High Sens 15 11/14/24 03:21: Urine Color Yellow, Urine Clarity Clear, Urine pH 6.0, Ur Specific [place] 1.015, Urine Protein 100 H, Urine Glucose (UA) 50 H, Urine Ketones Negative, Urine Occult Blood 10 H, Urine Nitrite Negative, Urine Bilirubin Negative, Urine Urobilinogen Normal, Ur Leukocyte Esterase Negative, Urine RBC 0 SEEN, Urine WBC 0 SEEN, Ur Squamous Epith Cells 0 SEEN, Urine Bacteria 0 SEEN, Urine Mucus 0 SEEN Micro: Microbiology 11/14/24 01:35 Mucosa - Nose SARS-CoV-2, Influenza & RSV (PCR) - Final ABG Data ABG results: ABG 11/14/24 01:51 Specimen Type ADEBAYO Sample Site Not entered VBG pH 7.40 VBG pO2 82 H VBG HCO3 30 H VBG Total CO2 32 VBG O2 Sat (Calc) 96 H VBG Base Excess 5 H POC Mix VBG pCO2 Pt Tmp 48.2 O2 Delivery Device Room Air Imaging Radiology Impression Chest X-Ray 11/14/24 01:53 IMPRESSION: No acute cardiopulmonary process. Reading Location: [facility] Chest CTA 11/14/24 02:37 IMPRESSION: 1. No CT evidence of pulmonary embolism. 2. Scattered ground-glass opacities in the bilateral lungs as well as reticulonodular opacities likely on an infectious inflammatory basis. Continued follow-up is recommended to ensure resolution. 3. Mediastinal and bilateral hilar lymphadenopathy likely reactive to #2. 4. Additional findings as above. Reading Location: [facility] Assessment & Plan Assessment/Plan (1) Sepsis: QUALIFIERS: Sepsis acute organ dysfunction status: without acute organ dysfunction Sepsis type: sepsis due to unspecified organism Qualified Code(s): A41.9 - Sepsis, unspecified organism (2) Pneumonia: QUALIFIERS: Laterality: bilateral Lung location: unspecified part of lung Pneumonia type: due to unspecified organism Qualified Code(s): J18.9 - Pneumonia, unspecified organism (3) Leukocytosis: QUALIFIERS: Leukocytosis type: unspecified Qualified Code(s): D 72.829 - Elevated white blood cell count, unspecified (4) Lactic acidosis: (5) COPD exacerbation: (6) Tobacco abuse: (7) Respiratory insufficiency: (8) Uncontrolled hypertension: (9) Overweight (BMI 25.0-29.9): (10) History of methamphetamine abuse: (11) Schizophrenia: QUALIFIERS: Schizophrenia type: unspecified Qualified Code(s): F 20.9 - Schizophrenia, unspecified (12) Homeless single person: PLAN: Plan 1. CTA of the chest with IV contrast that showed no CT evidence of PE with scattered ground-glass opacities in bilateral lungs as well as reticulonodular opacities likely on an infectious/inflammatory basis due to suspected Pneumonia with Leukocytosis of 23.7K and Lactic Acidosis of 2.2 mmol/L with low-grade Fever of 99.9 ?F all present on admission indicating possible Sepsis - Admit to PCU for treatment under the sepsis protocol. Continue empiric IV ceftriaxone and IV azithromycin and await culture and sensitivity data. Check urinary antigens to Streptococcus pneumonia and Legionella. Check viral respiratory panel. Give acetaminophen as needed for [id number] (level 1-5/10) pain or fever. Give oxycodone as needed for severe (level 6-10/10) pain. 2. AE COPD in the setting of ongoing Tobacco Abuse complicating #1 - Resume Solu-Medrol IV begun in ER plus scheduled and as needed nebulizers. Tobacco abuse will be strongly discouraged. Nicotine patch will be offered to control cravings. 3. Respiratory Insufficiency with oxygen saturation dropping to 83% on RA requiring transition to 2L NC attributable to #1 & #2 - Wean supplemental oxygen as tolerated. 4. Uncontrolled Hypertension; currently not on treatment with a highly elevated blood pressure of 186/98 mmHg present on admission adding to the medical complexity of #1 - #3 - Blood Pressure is now down to 117/55 mmHg after initial round of treatment. Give IV hydralazine as needed for systolic blood pressure greater than 160 mmHg. 5. History of methamphetamine abuse amplifying the pathology outlined from #1 - #4 - Check UDS. Methamphetamine cessation will be strongly encouraged. 6. Overweight; with BMI of 27.7 present on admission adding to the burden of disease outlined from #1 - #5 - Weight loss is recommended. Check TSH. 7. Hyperlipidemia; currently not on treatment - Check Lipid Profile this admission. 8. CAD - Stable. 9. Schizophrenia; currently not on treatment - Apparently stable at this time. 10. Homeless - We we will consult case management to see patient on rounds in a.m. for further recommendations without appreciated advance. 11. OA; with chronic back pain - Give acetaminophen as needed as outlined in #1. 12. DVT prophylaxis - Enoxaparin 40 mg sq daily. Total time: Approximately (but not less than) 75 minutes. Sepsis Attestation Sepsis Alert: Yes Sepsis Attestation: Sepsis Ruled Out Date exam was performed: 11/14/24 Time exam was performed: 04:15 Possible Source of Sepsis: Pulmonary Sepsis Organ Dysfunction Criteria Present: Lactic Acid > 2 mmol/L Fluid Resuscitation Fluid resuscitation indicated?: Yes Fluid Resuscitation ordered: 30 ml/kg fluid bolus ordered Amount of fluid ordered: 2 Sepsis Note Date exam was performed: 11/14/24 Time exam was performed: 06:20 Response to fluids: Fluid responsive hypotension Charges/Coding Visit Charges Inpatient E&M: 73606 Init Hosp L3
[2024-11-14 03:45] LABS: Lactic Acid 1.7 mmol/L (0.0-2.0)
--- NOTE | 2024-11-14 03:49 | CT_ITS ---
PROCEDURE: ABDOMEN/PELVIS WITHOUT CONT 11/14/2024 REASON FOR EXAM: SEPSIS OF UNKNOWN ORIGIN. TECHNIQUE: Abdomen and pelvis CT without intravenous contrast. Noncontrast technique limits evaluation of the abdominal and pelvic viscera. Coronal and Sagittal reconstruction series were provided. One or more dose reduction techniques were used (e.g., Automated exposure control, adjustment of the mA and/or kV according to patient size, use of iterative reconstruction technique). PATIENT PREPARATION: Per protocol ORAL CONTRAST TYPE: None. COMPARISON: CT scan of the chest on 11/14/2024. FINDINGS: Mild bilateral peribronchial interstitial thickening, probably bronchitis. Bilateral basilar atelectatic pulmonary changes. Mild bilateral basilar ground-glass densities of the lungs, probably multifocal pneumonia. Bilateral basilar centrilobular nodularity of the lungs, probably bronchiolitis. Well-defined 4 mm hypodense lesion in the right hepatic lobe, probably benign and chronic. No follow-up is needed. Mild diffuse thickening of the wall of the bladder. Chronic bladder outlet obstruction versus cystitis. Mild bilateral perirenal inflammatory fat stranding, possibly an ascending urinary tract infection. Mild prostatomegaly. Scattered prostatic calcifications. Diffuse colonic diverticulosis. Mild thickening of the sigmoid colon. Underdistention, spasm versus mild colitis. Diffuse thickening of the stomach suggestive of gastritis. Moderate amount of fecal residue in the cecum and the proximal ascending colon. Diffuse spondylosis. Normal gallbladder and extrahepatic biliary system. Normal unenhanced spleen. Normal pancreas. Normal bilateral adrenal glands. Normal size of the right kidney. There is no right renal mass. There are no right renal calculi. There is no right hydronephrosis. Normal visualized right ureter. Normal size of the left kidney. There is no left renal mass. There are no left renal calculi. There is no left hydronephrosis. Normal visualized left ureter. Normal small intestine. The appendix is visualized and appears normal. There is no demonstrated peritoneal fluid. Calcified atheromatous plaques of the abdominal aorta. Normal inferior vena cava. Normal retroperitoneum. There is no pelvic mass lesion or lymphadenopathy. There is no pelvic fluid. CT/Abdomen/Pelvis without Cont IMPRESSION: 1. Mild bilateral peribronchial interstitial thickening, probably bronchitis. 2. Bilateral basilar atelectatic pulmonary changes. 3. Mild bilateral basilar ground-glass densities of the lungs, probably multifo liliana pneumonia. 4. Bilateral basilar centrilobular nodularity of the lungs, probably bronchioli tis. 5. Well-defined 4 mm hypodense lesion in the right hepatic lobe, probably benig n and chronic. No follow-up is needed. 6. Mild diffuse thickening of the wall of the bladder. Chronic bladder outlet o bstruction versus cystitis. 7. Mild bilateral perirenal inflammatory fat stranding, possibly an ascending u rinary tract infection. 8. Mild prostatomegaly. 9. Scattered prostatic calcifications. 10. Diffuse colonic diverticulosis. 11. Mild thickening of the sigmoid colon. Underdistention, spasm versus mild co litis. 12. Diffuse thickening of the stomach suggestive of gastritis. 13. Moderate amount of fecal residue in the cecum and the proximal ascending co alyse. Reading [facility]
[2024-11-14] MEDS: Ceftriaxone 1 GM/50 ML BAG IV (03:55)
[2024-11-14] MEDS: 0.9% Normal Saline (1000mL) 1,000 ML 100 ML IV (04:42)
[2024-11-14] MEDS: Azithromycin 500 MG in 0.9% Normal Saline (250mL Bag) 250 ML 250 MG IV (04:51)
[2024-11-14 05:04] LABS: Alcohol, Blood (Medical)-Serum < 10.1 mg/dL (<=10.0)
[2024-11-14 05:17] LABS: Amphetamine Urine NEGATIVE (<1000 ng/mL); Barbiturate Urine NEGATIVE (< 200 ng/mL); Benzodiazepine Urine NEGATIVE (< 200 ng/mL); Buprenorphine Urine NEGATIVE (< 200 ng/mL); Cocaine Urine NEGATIVE (< 300 ng/mL); Fentanyl, Urine NEGATIVE; Methadone Urine NEGATIVE (< 300 ng/mL); Opiates Urine PRESUMPTIVE POSITIVE (< 300 ng/mL); Oxycodone, Urine NEGATIVE (< 100 ng/mL); PCP Urine NEGATIVE (< 25 ng/mL); THC Urine NEGATIVE (< 50 ng/mL)
[2024-11-14 05:51] LABS: Reflex Lactate? Y
[2024-11-14 05:55] LABS: Magnesium 2.1 mg/dL (1.5-2.2); Phosphorus 2.7 mg/dL (2.7-4.5); Thyroid Stim Hormone (TSH) 0.439 uIU/mL (0.300-4.200); Troponin T High Sensitivity 17 ng/L (<=22); Vitamin B12 495 pg/mL (180-914)
[2024-11-14 06:46] LABS: Cholesterol 144 mg/dL (<=200); High Density Lipoprotein 44 mg/dL; Low Density Lipoprotein Calc. 89 mg/dL; Triglycerides 56 mg/dL; Very Low Density Lipoprotein 11 mg/dL (5-40); cholesterol:hdl ratio screen 3.26
[2024-11-14 06:52] LABS: Hemoglobin A1c 5.6 % (<=5.6)
[2024-11-14 06:52] LABS: Troponin T High Sens 2 HR 16 ng/L (<=22)
[2024-11-14 06:56] LABS: Lactic Acid 2.3 mmol/L (0.0-2.0)
--- NOTE | 2024-11-14 07:42 | PCM.HOSP.N ---
Hospitalist Note 64-year-old male who presented to the emergency department at [facility] on 11/14/2024 early in the morning with shortness of breath and wheezing. Symptoms started about 3 to 4 days prior to presentation and have been gradually worsening. Patient denies any known sick contacts and denied any fever, chills, nausea, vomiting, diarrhea, abdominal pain or headache/respiratory upper respiratory symptoms. Vital signs on presentation showed temperature of 99.9, heart rate 118, respiratory 24, blood pressure was 186/98 and pulse ox was 94% on room air. Patient did desatted to 83% on room air and was placed on 2 L nasal cannula and his oxygen saturations improved to 97%. Markedly elevated white count on presentation with a left shift. VBG did not show an acidosis. Chemistry panel was unremarkable. UDS was opiate positive. CT of the chest was negative for PE and shows groundglass bilateral opacities as well as reticulonodular opacities at the bases bilaterally with mediastinal and bilateral hilar lymphadenopathy that was suspected to be reactive. No infiltrate was identified. Highly suspect this is viral etiology. Will hold off on antibiotics for now but low threshold for initiating depending on symptoms. Currently on aggressive pulmonary toilet, steroids, incentive spirometer. Oxygen has been weaned to 1 L. Will check ambulatory pulse ox in a.m. if looks to be stable and assess for discharge possibility.
[2024-11-14 08:47] LABS: Troponin T High Sens 4 HR 12 ng/L (<=22)
[2024-11-14] MEDS: Enoxaparin 40 MG/0.4 ML Syringe SC (10:43)
[2024-11-14] MEDS: levoFLOXacin IV 750 MG/150 ML BAG 100 MG IV (10:43)
[2024-11-14] MEDS: guaiFENesin 1,200 MG Tablet 1200 MG PO ×2 (10:44→20:44)
[2024-11-14] MEDS: Lactobacillis Acidophilus 1 CAP PO ×3 (14:09→20:44)
[2024-11-14] MEDS: Methylprednisolone Sod Succ 40 MG/ML VIAL IV ×2 (14:10→20:44)
[2024-11-14] MEDS: 0.9% Saline Lock 10 ML Syringe IV (20:44)
[2024-11-15] VITALS (10 sets, daily range): BP systolic 145–157; BP diastolic 68–90; PULSE 80–116; RESP 16–18; TEMP 36–36.6; O2SAT 93–99; BMI 26.9
[2024-11-15] MEDS: Methylprednisolone Sod Succ 40 MG/ML VIAL IV (04:58)
[2024-11-15] MEDS: 0.9% Saline Lock 10 ML Syringe IV ×4 (04:58→22:09)
[2024-11-15 06:32] LABS: Absolute Lymphocyte Count 1.12 X10^3/uL (0.83-4.51); Absolute Neutrophil Count 23.7 X10^3/uL (2.0-7.7); Basophil# 0.07 X10^3/uL; Basophil% 0.3 % (0-1); Hematocrit 43.3 % (40-54); Hemoglobin 14.2 g/dL (13.0-16.5); Lymphocyte # 1.12 X10^3/ul (0.83-4.51); Lymphocyte % 4.2 % (19-41); Mean Corp Hgb Conc 32.8 g/dL (32-36); Mean Corpuscular Hgb 29.7 pg (27.0-32.0); Mean Corpuscular Volume 90.6 fL (80-94); Mean Platelet Vol. 9.5 fl (6.2-12.0); Monocyte# 1.47 X10^3/uL; Monocyte% 5.5 % (0-10); NRBC Flagged by Analyzer 0 % (0-5); Neutrophil # 23.73 X10^3/uL (2.7-7.7); POSITIVE DIFFERENTIAL YES; Platelet Count 417 K/mm3 (150-450); RBC Distribution Width CV 12.7 % (11.6-14.6); Red Blood Count 4.78 M/mm3 (4.6-6.2); White Blood Count 26.7 K/mm3 (4.4-11.0)
[2024-11-15 06:33] LABS: Differential Indicated SCAN CRITERIA MET
[2024-11-15 06:54] LABS: ALB/GLOB Ratio 1.1 RATIO (0.9-2.4); AST(SGOT) 20 U/L (<=37); Alanine Aminotransfer ALT/SGPT 19 U/L (<=46); Albumin, Serum 3.6 g/dL (3.4-4.8); Alkaline Phosphatase 100 U/L (40-129); Anion Gap 10 (5-15); BUN 20 mg/dL (4-19); BUN/Creat Ratio 29.7 RATIO (10-20); Calcium,Total 9.3 mg/dL (7.6-11.0); Carbon Dioxide 28.6 mmol/L (21.0-32.0); Chloride 103 mmol/L (98-108); Creatinine, Serum 0.66 mg/dL (0.70-1.20); EST Glomerular Filtration Rate 104 (>60); Estimated Creatinine Clearance 83.07 ml/min (50-250); Globulin 3.2 g/dL (2.2-4.2); Glucose 116 mg/dL (70-99); Potassium 4.3 mmol/L (3.3-5.1); Protein, Total 6.8 g/dL (5.9-8.4); Sodium Level 142 mmol/L (133-145)
[2024-11-15] MEDS: Ipratropium/Albuterol Sulfate 3 ML AMPUL.NEB INHALATION ×4 (06:57→17:00)
[2024-11-15] MEDS: levoFLOXacin IV 750 MG/150 ML BAG 100 MG IV (09:56)
[2024-11-15] MEDS: guaiFENesin 1,200 MG Tablet 1200 MG PO ×2 (09:57→22:07)
[2024-11-15] MEDS: Enoxaparin 40 MG/0.4 ML Syringe SC (09:57)
[2024-11-15] MEDS: Lactobacillis Acidophilus 1 CAP PO ×4 (09:57→22:07)
[2024-11-15] MEDS: 0.9% Normal Saline (100mL Bag) 100 ML 15 ML IV (10:13)
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
--- NOTE | 2024-11-15 11:53 | CASEMGMT ---
NARESH SMART Assessment: Face to Face with pt for initial transition planning/care coordination assessment. NARESH SMART introduced self and role at [facility], pt voices understanding and consents to assessment. Pt is A&O x4 and answers all questions appropriately at this time. Pt lying in bed in no distress. Care providers, pharmacy, and demographics verified/updated. Strata: 2 Admitting Dx: AE COPD, Early Pneumonia and suspected sepsis PCP: Tere Specialists: Denies Preferred Pharmacy: [facility] Insurance: [facility] Prescription Benefit: yes LNOK: Brother, Parmjit; Friend, Eddie Living Arrangements: Pt is homeless, SW in to speak with patient about living arrangements. ADLs: Pt reports I at baseline. Transportation: Pt walks everywhere he needs to go. DME: Denies HHC/SNF: Denies Hx of. Pt states would like assistance with finding a place to stay at time of dc. Pt states no further concerns/needs. CM to follow. Advised pt to ask CM if any further question/concerns/needs arise, voices understanding. Pt Goal: Find placement. Plan: Pt would like assistance with finding somewhere to stay at time of DC. Pt is currently on O2 in the room, NARESH SMART provided pt with a verbal list of DME providers, pt chose [facility] for O2 needs if required at time of DC. Petros INFANTE CM
--- NOTE | 2024-11-15 13:07 | PN_ITS ---
Subjective Subjective Patient seen and examined. He feels tired and still short of breath. He admits to coughing, productive of clear sputu. He is also wheezing. Review of systems is otherwise negative. He was on 1.5L of oxygen at time of review. Objective Data Objective Data Vital Signs: Vital Signs Temp Pulse Resp BP Pulse Ox O2 Del Method O2 Flow Rate 97.7 F L 93 18 145/68 H 95 Room Air 1.5 11/15/24 09:00 11/15/24 10:24 11/15/24 10:24 11/15/24 09:00 11/15/24 09:00 11/15/24 09:00 11/15/24 06:57 Oxygen Flow Rate (L/min) 1.5 Oxygen Delivery Method Room Air Weight: 166 lb 14.239 oz Body Mass Index (BMI) 26.9 Intake & Output: Intake and Output for Last 24 Hours 11/13/24 11/14/24 11/15/24 23:59 23:59 23:59 Intake Total 1941.67 / 1941.67 250 / 250 Output Total 600 / 600 Balance 1341.67 / 1341.67 250 / 250 Lab / Micro Data 11/15/24 06:17 11/15/24 06:17 Labs: Laboratory Results - last 24 hr 11/15/24 06:17: WBC 26.7 H, RBC 4.78, Hgb 14.2, Hct 43.3, MCV 90.6, MCH 29.7, MCHC 32.8, RDW Std Deviation 42.0, RDW Coeff of Luis Miguel 12.7, Plt Count 417, MPV 9.5, Immature Gran % (Auto) 1.000 H, Neut % (Auto) 89.0 H, Lymph % (Auto) 4.2 L, [place] % (Auto) 5.5, Eos % (Auto) 0.0, Baso % (Auto) 0.3, Absolute Neuts (auto) 23.7 H, Absolute Lymphs (auto) 1.12, Nucleated RBC % 0, Differential Comment , Sodium 142, Potassium 4.3, Chloride 103, Carbon Dioxide 28.6, Anion Gap 10, BUN 20 H, Creatinine 0.66 L, Estim Creat Clear Calc 83.07, Est GFR (MDRD) Non-Af 104, BUN/Creatinine Ratio 29.7 H, Glucose 116 H, Calcium 9.3, Total Bilirubin 0.20, AST 20, ALT 19, Alkaline Phosphatase 100, Total Protein 6.8, Albumin 3.6, Globulin 3.2, Albumin/Globulin Ratio 1.1 Micro: Microbiology 11/14/24 20:30 Sputum, Expectorated/Coughed Gram Stain - Final 11/14/24 05:15 Mucosa - Nasopharyngeal Respiratory Panel (PCR) - Final 11/14/24 03:21 Urine, Clean Catch Legionella Antigen - Final 11/14/24 03:21 Urine, Clean Catch Streptococcus pneumoniae Antigen (M - Final 11/14/24 01:35 Mucosa - Nose SARS-CoV-2, Influenza & RSV (PCR) - Final Social Homelessness:: Unsheltered Physical Exam Const alert, oriented x3 and no apparent distress General Appearance: cooperative HEENT normocephalic, head/scalp atraumatic and moist oral mucous membranes Eyes PERRL and EOMs intact bilaterally Neck no lymphadenopathy and supple Lymph Lymphatic: no lymphadenopathy noted and no lymphedema noted Resp Resp Narrative: moderately diminished breath sounds bibasally, no wheezes or crackles. Cardio regular rate, regular rhythm, S1 normal heart sound, S2 normal heart sound and no murmurs GI normal to inspection, nondistended, normoactive bowel sounds, soft to palpation, non-tender and non-distended Extremity normal capillary refill, no clubbing, cyanosis or edema and no calf tenderness General Extremity: no tenderness to palpation of joints or extremities Skin General Skin Exam: no breakdown Neuro CN's II-XII intact bilaterally, no focal motor deficits and no sensory deficits noted Motor Exam: strength 5/5 throughout and general weakness Psych thought process normal, cooperative and affect normal Appearance: appropriate Assessment & Plan Assessment/Plan (1) COPD exacerbation: (2) Pneumonia: QUALIFIERS: Pneumonia type: due to unspecified organism L aterality: bilateral Lung location: unspecified part of lung Qualified Code(s): J18.9 - Pneumonia, unspecified organism PLAN: Plan #Acute exacerbation of COPD * CTA of the chest with contrast showed no evidence of PE and showed scattered ground glass opacities in bilateral lungs as well as reticulonodular opacities likely on an infecitous/inflammatory basis due to suspected pneumonia * on IV levofloxacin.; on IV solumedrol * urine for strep and legionella negative * breahting treatment with bronchodilators * titrate oxygen to maintain sats> 90% * WBCs up to 26.7. The steroids may also be playing a role * #Hypoxia due to acute COPD exacerbation: as above. On breathing treatment with bronchodilators. #Hypertension * poorly controlled. * BP was markedly elevated, in the 190s systolic. * on IV hydralazine prn. * Not on any oral BP meds. Will start patient on p.o. amlodipine 10 mg daily. * #History of methamphetamine abuse: counseled to quit #CAD: stable # History of schizophrenia: Currently not on treatment. DVT Prophylaxis: Lovenox Charges/Coding Visit Charges Inpatient E&M: 96226 Subs Hosp L2
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
[2024-11-15] MEDS: amLODIPine 10 MG Tablet PO (15:32)
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
--- NOTE | 2024-11-15 16:10 | CASEMGMT ---
Social Work - NEXT OF KIN & discharge planning While meeting with patient today, patient insistent on social security specialist helping patient reach patient's real estate attorney. Patient would like his real estate attorney to come to the hospital. Explained that uncertain whether this could happen. While in the patient's room called patient's publicity writer Alli Schilling at [phone] and left message with eyeglass lens generator of patient's current hospitalization and patient's wish to have Mr. Schilling updated on patient's status in the hospital. This lead technical writer provided name and number to have Mr. Schilling call this lead technical writer back. This lead technical writer noted on patient's legal paperwork, that patient had a pre-trial hearing on 11.10.24 at 0915, which patient reports he missed as could not read and may have been when patient laying in an alley sleeping somewhere. [facility] [id number]. Patient not clear as to why he has a court case coming up. Patient thanked this lead technical writer and immediately asked if the real estate attorney is coming. Explained that had to leave a message and patient heard such. Patient expressed much thanks and offered this lead technical writer money, to mail things to social security specialist's home, and even food if social security specialist can get things done for patient. Redirected patient, modeling appropriate boundaries, educating patient on importance of keeping own money, not giving money away as patient needs to care for himself; that staff cannot accept money or gifts for service. Patient smiled and accepted information and redirection provided. This lead technical writer received a message from patient's brother Parmjit Hendrix, to call back. Asked patient if it is okay to call Parmjit back. Patient stated this is fine, and asked if social security specialist can ask family if patient can live with family, if the family can get patient a new e-bike so patient can work, or maybe get some new sweatpants for patient. Called patient's brother Parmjit Hendrix. Parmjit shares: Patient used to live with Parmjit and Parmjit's , but patient cannot live there again as patient does not follow rules as well as patient has history of meth use and Parmjit will not have this around other family members. Parmjit reports to have own health issues, as does Salome, and just cannot have patient in their home. Parmjit reports has helped patient from afar in the last couple of years, though patient has not really be aware of help given. This lead technical writer asked about patient's other emergency contact, Eddie Hernandez. Parmjit reports Eddie was patient's boss and helped patient for a long time, such as helped managing money, paying bills, etc. However Eddie has tired of patient destroying things so doesn't have as much involvement anymore. Reports patient spent some time in [place] in the last couple of years, and stayed with some family for awhile, but didn't stay in treatment and ended up back in [facility]. Parmjit reports he is not biologically related to the patient, is a stepbrother to the patient, but was around patient a lot so they have been like brothers. Per Parmjit, patient does have some biological family members including 3 daughters, 3 siblings and an an uncle. This lead technical writer inquired whether there are any family members who would be willing to drop of some clean clothing for patient as [facility] very [facility] belongings, which are soiled. Parmjit reports will see what can be done. Next of kin, if ever needed, per Parmjit: Daughters: Nany Richardson (local to [facility]) No phone number known, but is on [employer] per Parmjit. Daughter: Kaye Thompson (local to [facility]) No phone number known. Daughter: Jada (uncertain of last name, but last knew lived in [facility] area with her mother. This was daughter was the only child from patient's prior marriage). No phone number known. Biological sister: Ophelia, lives in [place]. [phone] Biolocial sister: John, lives in [place]. [phone] Biological brother: Ike Hendrix, (currently in [facility]) Biological Uncle: Omid Jones, is retired and living in [facility], is the person statyed with for a time in the last couple of years. Omid is reported to have some Dementia started. Omid helped to raise the patient. With patient's stated verbal consent called [facility] to see if patient is active with a psychiatric provider and to connect with correctional casework specialist Joselito Amado. Patient is active with psychiatric services and able to obtain patient an appointment with child psychologist - Jim for 11/25/2024 at 0830 Called BERRY Amado and left message of patient's hosptialiation, of follow up with Jonathan and request for Joselito to help patient get to the apointmetn. Asked for a call back. With patient's stated verbal consent, called [facility], to see about clohting and personal belongings. No answer and no VM available to leave a message. Plan: Discharge to [facility] when medically stable, follow up with [facility] on 11/25/2024. Await calls back from correctional casework specialist and from patient's real estate attorney. -MEHDI Hunt
[2024-11-15] MEDS: Acetaminophen 325 MG Tablet 650 MG PO (22:07)
[2024-11-15] MEDS: MELATONIN 3 MG TABLET PO (22:08)
[2024-11-16] VITALS (10 sets, daily range): BP systolic 148–160; BP diastolic 72–90; PULSE 77–96; RESP 14–22; TEMP 36.3–36.6; O2SAT 90–96; BMI 26.9
[2024-11-16] MEDS: 0.9% Saline Lock 10 ML Syringe IV ×4 (05:42→20:28)
[2024-11-16 06:53] LABS: Absolute Neutrophil Count 21.1 X10^3/uL (2.0-7.7); Basophil# 0.07 X10^3/uL; Basophil% 0.3 % (0-1); Hematocrit 44.2 % (40-54); Hemoglobin 14.7 g/dL (13.0-16.5); Lymphocyte % 4.3 % (19-41); Mean Corp Hgb Conc 33.3 g/dL (32-36); Mean Corpuscular Hgb 29.8 pg (27.0-32.0); Mean Corpuscular Volume 89.5 fL (80-94); Mean Platelet Vol. 9.4 fl (6.2-12.0); Monocyte# 0.85 X10^3/uL; Monocyte% 3.6 % (0-10); NRBC Flagged by Analyzer 0 % (0-5); Neutrophil % 90.3 % (47-70); POSITIVE DIFFERENTIAL YES; Platelet Count 468 K/mm3 (150-450); RBC Distribution Width CV 12.7 % (11.6-14.6); RBC Distribution Width SD 41.5 fl (35.1-43.9); Red Blood Count 4.94 M/mm3 (4.6-6.2); White Blood Count 23.4 K/mm3 (4.4-11.0)
[2024-11-16 06:58] LABS: Differential Indicated SCAN CRITERIA MET
[2024-11-16 07:04] LABS: Anion Gap 10 (5-15); BUN 19 mg/dL (4-19); BUN/Creat Ratio 27.4 RATIO (10-20); Calcium,Total 8.9 mg/dL (7.6-11.0); Carbon Dioxide 25.7 mmol/L (21.0-32.0); Chloride 102 mmol/L (98-108); Creatinine, Serum 0.68 mg/dL (0.70-1.20); EST Glomerular Filtration Rate 103 (>60); Estimated Creatinine Clearance 83.07 ml/min (50-250); Glucose 126 mg/dL (70-99); Potassium 4.6 mmol/L (3.3-5.1); Sodium Level 139 mmol/L (133-145)
[2024-11-16 07:12] LABS: Bedside Glucose 117 mg/dL (74-106)
[2024-11-16] MEDS: Ipratropium/Albuterol Sulfate 3 ML AMPUL.NEB INHALATION ×3 (07:20→14:41)
[2024-11-16] MEDS: Lactobacillis Acidophilus 1 CAP PO ×4 (10:31→20:23)
[2024-11-16] MEDS: amLODIPine 10 MG Tablet PO (10:33)
[2024-11-16] MEDS: guaiFENesin 1,200 MG Tablet 1200 MG PO ×2 (10:33→20:23)
[2024-11-16] MEDS: Enoxaparin 40 MG/0.4 ML Syringe SC (10:34)
[2024-11-16] MEDS: levoFLOXacin IV 750 MG/150 ML BAG 100 MG IV (10:35)
[2024-11-16] MEDS: 0.9% Normal Saline (100mL Bag) 100 ML 15 ML IV (10:48)
--- NOTE | 2024-11-16 12:04 | PN_ITS ---
Subjective Subjective Patient seen and examined. He feels better today. He is on room air. His white cell count is trended down a bit to 23.4 today. Review of systems otherwise negative. He feels his breathing has improved. He denies any coughing. Objective Data Objective Data Vital Signs: Vital Signs Temp Pulse Resp BP Pulse Ox O2 Del Method O2 Flow Rate 97.8 F 96 14 158/90 H 90 Room Air 1.5 11/16/24 08:49 11/16/24 10:17 11/16/24 10:17 11/16/24 08:49 11/16/24 10:17 11/16/24 10:17 11/15/24 06:57 Oxygen Flow Rate (L/min) 1.5 Oxygen Delivery Method Room Air Weight: 166 lb 14.239 oz Body Mass Index (BMI) 26.9 Intake & Output: Intake and Output for Last 24 Hours 11/14/24 11/15/24 11/16/24 23:59 23:59 23:59 Intake Total 1941.67 / 1941.67 250 / 250 Output Total 600 / 600 800 / 800 Balance 1341.67 / 1341.67 -550 / -550 Lab / Micro Data 11/16/24 06:35 11/16/24 06:35 Labs: Laboratory Results - last 24 hr 11/16/24 06:35: WBC 23.4 H, RBC 4.94, Hgb 14.7, Hct 44.2, MCV 89.5, MCH 29.8, MCHC 33.3, RDW Std Deviation 41.5, RDW Coeff of Luis Miguel 12.7, Plt Count 468 H, MPV 9.4, Immature Gran % (Auto) 1.500 H, Neut % (Auto) 90.3 H, Lymph % (Auto) 4.3 L, [place] % (Auto) 3.6, Eos % (Auto) 0.0, Baso % (Auto) 0.3, Absolute Neuts (auto) 21.1 H, Absolute Lymphs (auto) 1.00, Nucleated RBC % 0, Differential Comment COMMENT, Sodium 139, Potassium 4.6, Chloride 102, Carbon Dioxide 25.7, Anion Gap 10, BUN 19, Creatinine 0.68 L, Estim Creat Clear Calc 83.07, Est GFR (MDRD) Non- Af 103, BUN/Creatinine Ratio 27.4 H, Glucose 126 H, Calcium 8.9 11/16/24 06:46: POC Glucose 117 H Micro: Microbiology 11/14/24 20:30 Sputum, Expectorated/Coughed Gram Stain - Final 11/14/24 20:30 Sputum, Expectorated/Coughed Respiratory Culture - Preliminary Appears to be normal respiratory candy. Further studies to follow. 11/14/24 05:15 Mucosa - Nasopharyngeal Respiratory Panel (PCR) - Final 11/14/24 03:21 Urine, Clean Catch Legionella Antigen - Final 11/14/24 03:21 Urine, Clean Catch Streptococcus pneumoniae Antigen (M - Final 11/14/24 01:35 Mucosa - Nose SARS-CoV-2, Influenza & RSV (PCR) - Final Social Homelessness:: Unsheltered Physical Exam Const alert, oriented x3, no apparent distress and average body habitus General Appearance: cooperative HEENT normocephalic, head/scalp atraumatic, hearing grossly normal bilaterally and moist oral mucous membranes Eyes PERRL and EOMs intact bilaterally Neck no lymphadenopathy, supple and no JVD Lymph Lymphatic: no lymphadenopathy noted and no lymphedema noted Resp Resp Narrative: moderately diminished breath sounds bibasally, no wheezes or crackles. Auscultation: wheezes Cardio regular rate, regular rhythm, S1 normal heart sound, S2 normal heart sound and no murmurs GI normal to inspection, nondistended, normoactive bowel sounds, soft to palpation, non-tender and non-distended Extremity normal to inspection, full ROM, normal capillary refill, no clubbing, cyanosis or edema and no calf tenderness General Extremity: no tenderness to palpation of joints or extremities Skin General Skin Exam: no breakdown Neuro oriented x3, CN's II-XII intact bilaterally, moves all extremities, no focal motor deficits and no sensory deficits noted Sensorium / Orientation: awake and alert Speech: speech normal Motor Exam: strength 5/5 throughout and general weakness Psych thought process normal, cooperative and affect normal Appearance: appropriate Assessment & Plan Assessment/Plan (1) COPD exacerbation: (2) Pneumonia: QUALIFIERS: Pneumonia type: due to unspecified organism L aterality: bilateral Lung location: unspecified part of lung Qualified Code(s): J18.9 - Pneumonia, unspecified organism PLAN: Plan #Acute exacerbation of COPD * CTA of the chest with contrast showed no evidence of PE and showed scattered ground glass opacities in bilateral lungs as well as reticulonodular opacities likely on an infectious/inflammatory basis due to suspected pneumonia * on IV levofloxacin.; on IV solumedrol * urine for strep and legionella negative * breahting treatment with bronchodilators * titrate oxygen to maintain sats> 90% * WBC is down to 23.4 today. The steroids may also be playing a role * Respiratory culture preliminary report shows normal respiratory candy. * #Hypoxia due to acute COPD exacerbation: as above. On breathing treatment with bronchodilators. #Hypertension * poorly controlled. * BP was markedly elevated, in the 190s systolic. * on IV hydralazine prn. * started on PO amlodipine 10mg daily. * #History of methamphetamine abuse: counseled to quit #CAD: stable # History of schizophrenia: Currently not on treatment. DVT Prophylaxis: Lovenox Disposition: patient is homeless. Case management on board to help facilitate placement. Charges/Coding Visit Charges Inpatient E&M: 70387 Subs Hosp L2
--- NOTE | 2024-11-16 12:43 | CASEMGMT ---
Social Work Pt's family bought a bag of belongings to the hospital and requested pt be given the things, but pt not be told who they came from. ANTHONY placed phone call to [facility] and spoke with the [place] [facility] manager field services and inquired about pt's belongings being thrown out. [facility] photoflash powder mixer denies knowing this patient nor throwing his things out. SW met with pt and provided bag of belongings. Pt confirms that he plans to go to [facility] at time of discharge. REA Vences
--- NOTE | 2024-11-16 14:30 | CASEMGMT ---
Social Work Received call from patient's mental health embedded case manager from [facility], Joselito Amado ([phone]). Updated Joselito to patient's hospitalization, current status, and patient's identified needs and concerns. Joselito shares that he is recently involved with patient and that patient has been hard to track down in the community. Updated that Joselito to reason for admission, no discharge today but possibility this week. Joselito reports can transport patient at discharge, so long as discharge is during the week. Updated that [facility] stated to social economist Silvia yesterday, that willing to take patient back. Joselito plans to reach out to [facility] for further planning. Updated to patient missing a pre-trial on 11.10.24, which Joselito was not aware of. Joselito will continue to reach out to patient's publication manager Alli Schilling. Updated Joselito that patient asked if the technical research scientist could come to the hospital to see patient. Discussed possibility of patient being referred to a nursing home. This may be a possibility though if patient is actively using any substances this would rule out appropriateness until take care of. This also takes times to arrange and would not be immediate at discharge. Joselito reports ability to transport patient to psychiatric follow up with WEB MARKETING MANAGER Jonathan Carrillo. Updated Joselito that patient mentioned interested in going back on an injectable. Joselito will discuss with Jonathan at appointment. Updated Joselito that patient had a suicide risk assessment, which patient is denying any current thoughts, plans, intent or recent self harm; denying any A/V hallucinations though is appearing slightly paranoid. Discussed with Joselito patient would benefit from having a place to stay, healthy supports and someone ensuring patient takes medications. Joselito plans to visit patient today yet at the hospital. Updated FRIT COATER Marilee to conversation with Joselito, and provided Joselito's number in case needed. Plan: [facility], mental health follow up arranged for 11/25/2024 at 0830 with psych specialist Jonathan, and embedded case manager is able to assist with transport to follow and back to [facility]. embedded case manager to work on reaching patient's technical research scientist. Social work will continue to follow and assist. -MEHDI Hunt
[2024-11-16] MEDS: MELATONIN 3 MG TABLET PO (20:39)
[2024-11-17 03:19] VITALS: BMI 26.9
[2024-11-17 04:00] VITALS: BP 144/101; PULSE 85; RESP 14; TEMP 36.8; O2SAT 95
[2024-11-17 06:31] LABS: Absolute Lymphocyte Count 1.27 X10^3/uL (0.83-4.51); Absolute Neutrophil Count 18.2 X10^3/uL (2.0-7.7); Basophil# 0.15 X10^3/uL; Basophil% 0.7 % (0-1); Hematocrit 43.9 % (40-54); Hemoglobin 14.6 g/dL (13.0-16.5); Lymphocyte # 1.27 X10^3/ul (0.83-4.51); Lymphocyte % 5.9 % (19-41); Mean Corp Hgb Conc 33.3 g/dL (32-36); Mean Corpuscular Hgb 29.8 pg (27.0-32.0); Mean Corpuscular Volume 89.6 fL (80-94); Mean Platelet Vol. 9.3 fl (6.2-12.0); Monocyte# 1.01 X10^3/uL; Monocyte% 4.7 % (0-10); NRBC Flagged by Analyzer 0 % (0-5); Neutrophil % 85.1 % (47-70); Platelet Count 496 K/mm3 (150-450); RBC Distribution Width CV 12.5 % (11.6-14.6); White Blood Count 21.4 K/mm3 (4.4-11.0)
[2024-11-17 06:54] LABS: Anion Gap 12 (5-15); BUN 25 mg/dL (4-19); BUN/Creat Ratio 32.8 RATIO (10-20); Calcium,Total 9.3 mg/dL (7.6-11.0); Carbon Dioxide 25.5 mmol/L (21.0-32.0); Chloride 102 mmol/L (98-108); Creatinine, Serum 0.77 mg/dL (0.70-1.20); EST Glomerular Filtration Rate 99 (>60); Estimated Creatinine Clearance 83.07 ml/min (50-250); Glucose 143 mg/dL (70-99); Potassium 4.5 mmol/L (3.3-5.1); Sodium Level 139 mmol/L (133-145)
[2024-11-17 07:00] VITALS: PULSE 73
[2024-11-17 08:49] VITALS: BP 171/98; PULSE 77; RESP 18; TEMP 36.6; O2SAT 99
[2024-11-17] MEDS: Enoxaparin 40 MG/0.4 ML Syringe SC (08:51)
[2024-11-17] MEDS: guaiFENesin 1,200 MG Tablet 1200 MG PO (08:51)
[2024-11-17] MEDS: amLODIPine 10 MG Tablet PO (08:52)
[2024-11-17] MEDS: Lactobacillis Acidophilus 1 CAP PO ×2 (08:52→14:36)
[2024-11-17] MEDS: levoFLOXacin IV 750 MG/150 ML BAG 100 MG IV (08:58)
[2024-11-17 09:59] VITALS: O2SAT 93; O2SAT 97
--- NOTE | 2024-11-17 10:08 | CASEMGMT ---
Social Work Pt's Certified Court/Medical Interpreter Joselito from [facility] is present in pt room. SW met with Joselito and pt. Pt continues to be agreeable to discharge to [facility]. Pt forward thinking, requesting assistance with finding permanent housing and stating he has talked with [employer] and pt has found three possible apartment options. Pt also states he wants to get a job and that he does not want to continue to live like this. Pt requesting information on [employer]. SW provided information and phone number and encouraged pt to work with and [facility] to connect with [employer] for housing assistance. Pt inquiring about discharge needs and SW informed that pt may be given new meds at discharge, and pt will need to follow up taking these. Discussed getting medications and [facility] retail pharmacy and meds to beds program. Pt would like to utilize this program. Nursing updated. Joselito will be able to transport pt to [facility]. SW to call Joselito when dc paper work is completed. REA Vences
--- NOTE | 2024-11-17 12:40 | DS.PCM_ITS ---
Providers Date of Admission: 11/14/24 Date of Discharge: 11/17/24 Primary Care Physician: Dr. Armen Carranza MD Reason For Visit: AE COPD, EARLY PNEUMONIA AND SUSPECTED SEPSIS Diagnosis Discharge Diagnosis (1) COPD exacerbation: Status: Chronic Code(s): J44.1 - Chronic obstructive pulmonary disease with (acute) exacerbation (2) Pneumonia: Status: Acute Code(s): J18.9 - Pneumonia, unspecified organism Qualifiers: Laterality: bilateral Lung location: unspecified part of lung P neumonia type: due to unspecified organism Qualified Code(s): J18.9 - Pneumonia, unspecified organism Plan #Acute exacerbation of COPD * CTA of the chest with contrast showed no evidence of PE and showed scattered ground glass opacities in bilateral lungs as well as reticulonodular opacities likely on an infectious/inflammatory basis due to suspected pneumonia * on IV levofloxacin.; on IV solumedrol * urine for strep and legionella negative * breahting treatment with bronchodilators * titrate oxygen to maintain sats> 90% * WBC is down to 23.4 today. The steroids may also be playing a role * Respiratory culture preliminary report shows normal respiratory candy. * #Hypoxia due to acute COPD exacerbation: as above. On breathing treatment with bronchodilators. #Hypertension * poorly controlled. * BP was markedly elevated, in the 190s systolic. * on IV hydralazine prn. * started on PO amlodipine 10mg daily. * #History of methamphetamine abuse: counseled to quit #CAD: stable # History of schizophrenia: Currently not on treatment. DVT Prophylaxis: Lovenox Disposition: patient is homeless. Case management on board to help facilitate placement. Medications at Discharge Home Medications amlodipine 10 mg tablet 10 mg PO DAILY #10 tabs 11/17/24 guaifenesin 1,200 mg tablet, extended release 12 hr (Mucus Relief ER) 1,200 mg PO BID PRN PRN congestion #30 tabs 11/17/24 levofloxacin 750 mg tablet 750 mg PO DAILY #5 tabs 11/17/24 prednisone 20 mg tablet 40 mg (2 x 20 mg) PO DAILY #10 tabs 11/17/24 Hospital Course Operations None Procedures None Summary of Care Provided Minutes Spent on Discharge: 45 Hospital Course: Patient is a 64-year-old male with a past medical history as outlined who is currently homeless was admitted through the ED on 11/14/2024 with a complaint of shortness of breath and wheezing. His symptoms had started about 3 to 4 days prior to admission. Was initially on exertion and subsequently even present at rest. He also had a nonproductive cough. He denied having any recent sick contacts. WBC was elevated at 23.7 on admission. Lactic acid was 2.2. Chest x-ray showed no acute cardiopulmonary pathology and CTA of the chest showed no evidence of PE but showed scattered groundglass opacities in the bilateral lungs as well as reticular nodule opacities likely due to an infectious versus inflammatory process. He was admitted and managed for acute exacerbation of COPD and probable community-acquired pneumonia. He was started on IV Solu- Medrol and breathing treatments and bronchodilators as well as IV levofloxacin. Patient initially required oxygen but was eventually weaned off of oxygen onto room air. Case management getting placement in a skilled nursing. He was discharged to the skilled nursing on 11/17/2024. He was on room air at time of discharge. He was discharged with a prescription for p.o. levofloxacin 750 mg daily for 5 days as well as p.o. prednisone 40 mg daily for 5 days. He is to follow-up with his primary care doctor within 1 to 2 weeks. Patient seen and examined prior to discharge. He had no active complaints and had an uneventful night. Review of systems otherwise negative. Labs and vitals reviewed. Home medication reviewed and reconciled. Physical Exam Const alert, oriented x3, no apparent distress and average body habitus General Appearance: cooperative HEENT normocephalic, head/scalp atraumatic, hearing grossly normal bilaterally and moist oral mucous membranes Mouth: oral and palatal mucosa normal Eyes PERRL and EOMs intact bilaterally Neck no lymphadenopathy, supple and no JVD Lymph Lymphatic: no lymphadenopathy noted and no lymphedema noted Resp Resp Narrative: moderately diminished breath sounds bibasally, no wheezes or crackles. Auscultation: wheezes Cardio regular rate, regular rhythm, S1 normal heart sound, S2 normal heart sound and no murmurs GI normal to inspection, nondistended, normoactive bowel sounds, soft to palpation, non-tender and non-distended Extremity normal to inspection, full ROM, normal capillary refill, no clubbing, cyanosis or edema and no calf tenderness General Extremity: no tenderness to palpation of joints or extremities Skin General Skin Exam: no breakdown Neuro oriented x3, CN's II-XII intact bilaterally, moves all extremities, no focal motor deficits and no sensory deficits noted Sensorium / Orientation: awake, alert, oriented to person, oriented to place and oriented to time Speech: speech normal Motor Exam: strength 5/5 throughout and general weakness Psych thought process normal, cooperative and affect normal Appearance: appropriate Medical Records Data Homelessness:: Unsheltered Weight / BMI Weight Weight: 166 lb 14.239 oz Body Mass Index (BMI) 26.9 ABG / Lab / Microbiology Data 11/17/24 05:40 11/17/24 05:40 Laboratory: Laboratory Results - last 24 hr 11/17/24 05:40: WBC 21.4 H, RBC 4.90, Hgb 14.6, Hct 43.9, MCV 89.6, MCH 29.8, MCHC 33.3, RDW Std Deviation 41.0, RDW Coeff of Luis Miguel 12.5, Plt Count 496 H, MPV 9.3, Immature Gran % (Auto) 3.600 H, Neut % (Auto) 85.1 H, Lymph % (Auto) 5.9 L, [place] % (Auto) 4.7, Eos % (Auto) 0.0, Baso % (Auto) 0.7, Absolute Neuts (auto) 18.2 H, Absolute Lymphs (auto) 1.27, Nucleated RBC % 0, Sodium 139, Potassium 4.5, Chloride 102, Carbon Dioxide 25.5, Anion Gap 12, BUN 25 H, Creatinine 0.77, Estim Creat Clear Calc 83.07, Est GFR (MDRD) Non-Af 99, BUN/Creatinine Ratio 32.8 H, Glucose 143 H, Calcium 9.3 Microbiology: Microbiology 11/14/24 20:30 Sputum, Expectorated/Coughed Gram Stain - Final 11/14/24 20:30 Sputum, Expectorated/Coughed Respiratory Culture - Final 11/14/24 02:47 Blood Culture (Wb) - Anticubital Left Blood Culture - Preliminary No growth in 48 hours. 11/14/24 03:06 Blood Culture (Wb) - Anticubital Right Blood Culture - Preliminary No growth in 48 hours. 11/14/24 05:15 Mucosa - Nasopharyngeal Respiratory Panel (PCR) - Final 11/14/24 03:21 Urine, Clean Catch Legionella Antigen - Final 11/14/24 03:21 Urine, Clean Catch Streptococcus pneumoniae Antigen (M - Final 11/14/24 01:35 Mucosa - Nose SARS-CoV-2, Influenza & RSV (PCR) - Final D/C Instructions Discharge Diet: Low fat / Low cholesterol Discharge Activity: Return to Normal Activity Weight Bearing Status: Weight bearing as tolerated Call your doctor if you observe: Fever of 101 or Higher, Shortness of breath, Dizziness, Swelling in the ankles, Chest pain and Increased palpitations (irregular heartbeat) DC O2, CPAP, BIPAP Needs Home O2 Discharge instructions: No Meaningful Use Info Meaningful Use Meaningful Use Diagnoses (Choose all that apply): None applicable Ischemic Stroke Statin Dosing Therapy Reference: STATIN DOSE THERAPY REFERENCE: * Patients > 75 years receive moderate or high dose statin therapy. * Patients 75 years or YOUNGER should receive HIGH intensity statin dose unless contraindicated. You will be required to document reason for non-treatment if statin daily dose does not meet guidelines. HIGH DOSE STATIN THERAPY DAILY Atorvastatin > than or = to 40 mg Rosuvastatin > than or = to 20 mg Amlodipine + Atorvastatin > than or = to 2.5/40 mg Ezetimibe + Simvastatin 10/80 mg Simvastatin 80mg Discharge Plan Admission Admit Date/Time: 11/14/24 03:52 Primary Reason for Your Visit: COPD exacerbation Attending Provider: Mi Velásquez Primary Care Provider: Armen Carranza Consulting Providers: Rd Brush; Gregoria Morgan Instructions Patient Instructions: Discharge Instructions: COPD Discharge Orders/Prescriptions Prescriptions: New amlodipine 10 mg Tablet 10 mg PO DAILY Qty: 10 2RF guaifenesin [Mucus Relief ER] 1,200 mg Tablet Extended Release 12hr 1,200 mg PO BID PRN PRN (Reason: congestion) Qty: 30 0RF levofloxacin 750 mg tablet 750 mg PO DAILY Qty: 5 0RF prednisone 20 mg tablet 40 mg PO DAILY Qty: 10 0RF Referrals / Follow Up: Armen Carranza MD [Primary Care Provider] - Within 1 Week Disposition Disposition (needs filled in before D/C Order can be placed): Home, Self Care Charges/Coding Visit Charges Inpatient E&M: 65139 Disch Hosp >30min
--- NOTE | 2024-11-17 12:40 | DCINST_ITS ---
Discharge Instructions Diet Discharge Diet: Low fat / Low cholesterol DC O2, CPAP, BIPAP needs Home O2 Discharge instructions: No Dressing / Incision Discharge Activity: Return to Normal Activity Weight Bearing Status: Weight bearing as tolerated Dressing / Incision Call your doctor if you observe: Fever of 101 or Higher, Shortness of breath, Dizziness, Swelling in the ankles, Chest pain and Increased palpitations (irregular heartbeat) Follow Up Care Test Results: Test results from this visit will be discussed in further detail at your follow- up appointment, if applicable. Discharge Plan Admission Admit Date/Time: 11/14/24 03:52 Primary Reason for Your Visit: COPD exacerbation Attending Provider: Mi Velásquez Primary Care Provider: Armen Carranza Consulting Providers: Rd Brush; Gregoria Morgan Instructions Patient Instructions: Discharge Instructions: COPD Discharge Orders/Prescriptions Prescriptions: New amlodipine 10 mg Tablet 10 mg PO DAILY Qty: 10 2RF guaifenesin [Mucus Relief ER] 1,200 mg Tablet Extended Release 12hr 1,200 mg PO BID PRN PRN (Reason: congestion) Qty: 30 0RF levofloxacin 750 mg tablet 750 mg PO DAILY Qty: 5 0RF prednisone 20 mg tablet 40 mg PO DAILY Qty: 10 0RF Referrals / Follow Up: Armen Carranza MD [Primary Care Provider] - Within 1 Week Disposition Disposition (needs filled in before D/C Order can be placed): Home, Self Care
--- NOTE | 2024-11-17 13:27 | CASEMGMT ---
Social Work Discharge order placed for pt. Phone call to Michel at [facility] and notified that pt will be discharged today. Michel confirms he will be accepting pt at the care home. Phone call to pt's [employer] Joselito and notified that pt has discharge orders in and Joselito can pick pt up. Joselito agreeable. Nursing notified and SW requested meds to bed prior to Joselito's arrival. Disposition: [facility] with follow up with [facility] case management and psychiatric services. REA Vences
[2024-11-17 14:00] VITALS: BP 146/91; PULSE 81; RESP 16; TEMP 36.6; O2SAT 95
--- NOTE | 2024-11-17 15:55 | NURSING ---
Pt given discharge instructions including medications, follow up appointments and all other discharge instructions. Iv removed with catheter intact, clean dry dressing applied, pt tolerated well. telemetry removed and placed at nurses station. Pt opting to walk out with outside case management social worker. pt denies any further questions or needs at this time.
--- NOTE | 2024-11-17 16:38 | PHA.DC.MC.R ---
Pharmacy [facility] has performed discharge medication reconciliation and counseling for this patient. 1. Amlodipine 5mg PO daily 2. Guaifenesin 1200mg PO BID PRN congestion 3. Levofloxacin 750mg PO daily x 5 days 4. Prednisone 40mg PO DAILYCM x 5 days The patient's discharge medication list was reviewed for discrepancies and discrepancies were resolved. The patient was counseled on the following discharge medications and changes in medications for homegoing were reviewed. The Reason for Use, instructions for use, and potential side effects were reviewed for all new medications. The patient's questions regarding all of their medications were answered. The patient was able to verbally demonstrate an understanding of their discharge medications. Medications at Discharge Home Medications amlodipine 10 mg tablet 10 mg PO DAILY #10 tabs 11/17/24 guaifenesin 1,200 mg tablet, extended release 12 hr (Mucus Relief ER) 1,200 mg PO BID PRN PRN congestion #30 tabs 11/17/24 levofloxacin 750 mg tablet 750 mg PO DAILY #5 tabs 11/17/24 prednisone 20 mg tablet 40 mg (2 x 20 mg) PO DAILY #10 tabs 11/17/24
== END 2024-11-17 16:04 | disposition home or self-care (01) | DRG 190 ==
LOC: ED 03:26 → PCU 04:08
PROVIDERS: Admitting Provider Internal Medicine; Emergency Provider Emergency Medicine; PCP Family Medicine; Visit Provider Student in an Organized Health Care Education/Training Program
DX: J44.1 Chronic obstructive pulmonary disease with (acute) exacerbation (principal); J18.9 Pneumonia, unspecified organism; Z59.02 Unsheltered homelessness; F20.9 Schizophrenia, unspecified; J44.0 Chronic obstructive pulmonary disease with (acute) lower respiratory infection; I10 Essential (primary) hypertension; M19.90 Unspecified osteoarthritis, unspecified site; F17.210 Nicotine dependence, cigarettes, uncomplicated; I25.10 Atherosclerotic heart disease of native coronary artery without angina pectoris; Z68.27 Body mass index [BMI] 27.0-27.9, adult; E66.3 Overweight
CPT/HCPCS: 36415; 71045; 71275; 74176; 80048; 80053; 80061; 80307; 81001; 82077; 82607; 82746; 82803; 82962; 83036; 83605; 83735; 84100; 84443; 84484; 85025; 87040; 87070; 87205; 87449; 87631; 87633; 93005; 94640; 94668; 97161; 97530; 99285; Q9967; A4216